=== PATIENT | male | born 1940 | race Caucasian/White ===

== ENCOUNTER → 2017-01-28 | Outpatient (CLI) | payer MEDICARE ==
[2016-02-14 11:19] VITALS: BP 130/77
[~2017-01-28] MED LIST: ACET325T16 PO; ASCO500T2 PO; ASPI325T11 PO; CLOP75TA PO; EZET10TA3 PO; FAMO20TA5 PO; GADOBUTROL 7.5 MMOL/7.5 ML VIAL IV ONE; MULT1TAB90 PO; PHEN100C PO; SIMV40TA3 PO; TAMS0.4C97 PO; VITA1TAB3 PO
--- NOTE | 2017-01-28 15:04 | RAD ---
MR BRAIN WITH CONTRAST HISTORY: PRIOR STUDY 09-22-10 AND 03-07-08 SENT...GAVE 7ML GADAVIST...PT C/O SLURRED SPEECH AND UNSTEADY GAIT...PRIOR STROKE COMPARISON: None TECHNIQUE: Axial diffusion-weighted imaging was obtained. Additional axial FLAIR, and axial T2 weighted images were obtained. Sagittal and axial T1-weighted imaging was obtained prior to the administration of intravenous contrast material. Additional sagittal, axial, and coronal T1-weighted imaging was obtained after the administration of gadolinium based intravenous contrast material. FINDINGS: There is encephalomalacia noted in the posterior left frontal lobe compatible with acute infarct. There is also cephalization the left cerebellar hemisphere from an old infarct. There are scattered foci of T2/FLAIR signal hyperintensity throughout the periventricular and deep hemispheric white matter bilaterally. This is nonspecific but most likely related to chronic small vessel ischemic disease. No abnormal enhancement identified. No restricted diffusion to indicate an acute infarct. No evidence of acute intracranial hemorrhage. No extra-axial fluid collections are identified. There is no mass effect or midline shift. Ventricular size is appropriate. Basal cisterns are patent. Visualized flow voids are normal in course, caliber, and signal. The globes are unremarkable apart from a thin right lens. There is mild mucosal thickening of the ethmoid air cells. IMPRESSION: No acute or recent infarct. No acute intracranial abnormality. Old infarcts are noted in the left posterior frontal lobe and left cerebellar hemisphere. Electronically signed by: Ross Klein MD (01/28/2017 3:00 PM)
== END | disposition home or self-care (01) ==
LOC: MRI 13:40
PROVIDERS: ATTEND Psychiatry & Neurology Neurology
DX: R26.9 Unspecified abnormalities of gait and mobility (principal)
CPT/HCPCS: 70553; A9585

== ENCOUNTER → 2017-11-29 | Outpatient (CLI) | payer MEDICARE ==
[2017-11-29] MEDS: GADOBUTROL 7.5 MMOL/7.5 ML VIAL IV (11:05)
== END | disposition home or self-care (01) ==
LOC: MRI 10:00
DX: M48.02 Spinal stenosis, cervical region (principal); M54.2 Cervicalgia; R26.81 Unsteadiness on feet; R56.9 Unspecified convulsions; G89.29 Other chronic pain
CPT/HCPCS: 72156; 95816; A9585

== ENCOUNTER → 2018-03-28 | Outpatient (CLI) | payer MEDICARE | END | disposition home or self-care (01) | LOC: RT 12:50 | DX: R56.9 Unspecified convulsions (principal); I10 Essential (primary) hypertension; E78.5 Hyperlipidemia, unspecified | CPT/HCPCS: 95816 ==

== ENCOUNTER 2018-04-30 21:54 | Inpatient (IN) | payer MEDICARE ==
[~2018-04-30] VITALS: Ht 172.7 cm; Wt 50.6 kg
[~2018-04-30 21:54] MED LIST changes: +EZET10TA18 PO; -EZET10TA3 PO; -GADOBUTROL 7.5 MMOL/7.5 ML VIAL IV ONE
[2018-04-30 22:00] VITALS: BP 161/101
[2018-04-30] MEDS ORDERED: HEPARIN 25,000UTS/500ML PREMIX 500 ML IV PRN (22:30)
[2018-04-30] MEDS ORDERED: HEPARIN for IV BOLUS 10,000 UNIT/10 ML VIAL. IV PRN (22:30)
[2018-04-30] MEDS ORDERED: ACETAMINOPHEN 325 MG TABLET. PO PRN (22:30)
[2018-04-30 23:06] LABS: BASO # 0.1 x10^3/uL (0.0-0.2); BASO % 1 % (0-3); EOS # 0.1 x10^3/uL (0.0-0.7); EOS % 1 % (0-3); HEMOGLOBIN 12.9 g/dL (13.0-17.5); LYMPH # 1.9 x10^3/uL (1.0-4.8); LYMPH % 30 % (24-48); MEAN CORPUSCULAR HEMOGLOBIN 34 pg (25-35); MEAN CORPUSCULAR HGB CONC 34 g/dL (31-37); MEAN CORPUSCULAR VOLUME 101 fL (79-100); MONO # 0.8 x10^3/uL (0.0-1.1); MONO % 12 % (0-9); NEUT # 3.4 x10^3uL (1.8-7.7); NEUT % 55 % (31-73); PLATELET COUNT 304 x10^3/uL (140-400); RED BLOOD COUNT 3.76 x10^6/uL (4.30-5.70); RED CELL DISTRIBUTION WIDTH 14.6 % (11.5-14.5); WHITE BLOOD COUNT 6.2 x10^3/uL (4.0-11.0)
[2018-04-30 23:10] LABS: CALCIUM 8.4 mg/dL (8.5-10.1); CREATININE 1.1 mg/dL (0.7-1.3); GFR 64.6; POTASSIUM 3.7 mmol/L (3.5-5.1)
[2018-04-30] MEDS ORDERED: PHEN100C PO (23:32)
[2018-04-30] MEDS ORDERED: CHOL10003 PO (23:34)
[2018-04-30] MEDS ORDERED: FA/V1CAP2 PO (23:37)
[2018-04-30] MEDS ORDERED: FERR325T14 PO (23:37)
[2018-05-01 03:10] VITALS: BP 113/76
--- NOTE | 2018-05-01 06:58 | EKG ---
[facility] [address] [place] [address] Test Date: 2018-04-30 Test Time: 22:30:08 Pat Name: NISHANT MARTIN Department: Room: 200 1 Gender: M Car Salter: : 1940 Requested By: MANASA MENESES Order Number: [id number] Reading MD: Kt Salas MD Measurements Intervals [place] Rate: 69 P: 52 TN: 176 QRS: -14 QRSD: 170 T: 155 QT: 478 QTc: 514 Interpretive Statements SINUS RHYTHM LEFTWARD AXIS NON SPECIFIC INTRAVENTRICULAR BLOCK ABNORMAL ECG Electronically Signed On 05-01-2018 7:37:22 CDT by Kt Salas MD
[2018-05-01 07:00] VITALS: BP 166/61
[2018-05-01] MEDS ORDERED: MORPHINE SULFATE 2 MG/ML VIAL. IV PRN (09:00)
[2018-05-01] MEDS ORDERED: traMADol 50 MG TABLET PO PRN (09:00)
[2018-05-01] MEDS ORDERED: ACETAMINOPHEN 325 MG TABLET. PO PRN ×2 (09:00)
[2018-05-01] MEDS ORDERED: ONDANSETRON PF 4 MG/2 ML VIAL. IV PRN (09:00)
[2018-05-01] MEDS ORDERED: DOCUSATE SODIUM 100 MG CAPSULE. PO PRN (09:00)
--- NOTE | 2018-05-01 09:23 | PDOC2 ---
RALPH JONES DREDGE DECKHAND 05/01/18 0923: CARDIAC CONSULT DATE OF CONSULT Date of Consult DATE: 05/01/18 TIME: 08:48 REASON FOR CONSULT Reason for Consult: abnormal rhythm REFERRING PHYSICIAN Referring Physician: Maricarmen SOURCE Source: Chart review, Patient HISTORY OF PRESENT ILLNESS HISTORY OF PRESENT ILLNESS This is a pleasant 77 yo male admitted for complains of increasing weakness and difficulty swallowing. Pt is not a reliable historian. He currently is aware that he is in the hospital otherwise he is pleasantly confuse with aphasia. Family is not at the bedside for further information. He was initially at [facility] and per chart review. He has been noted with changes in his mentation. He is known for left sided CVA. and the change is he could not walk like he did before with what appears to be ataxia. He does have aphasia and per review his dysarthria and when I talked to him he tries to find the words and utters an unrelated response to the question. He was also having PHILLIP yesterday. There was no complains of any cardiac symptoms, no CP, SOA, palpitations. Presently he denies any discomfort and appears comfortable. Upon admission at [facility] he has been noted with abnormal EKG prompting this consult. He also has hx of CAD with ALFREDO placed in the RCA on 02/2016. He eventually was transferred to [facility] for further evaluation. PAST MEDICAL HISTORY Cardiovascular: CAD, HTN, Hyperlipidemia, Aortic stenosis (mod to severe), Other Pulmonary: COPD CENTRAL NERVOUS SYSTEM: CVA, Seizure Heme/Onc: Anemia NOS, Cancer (bladder) Psych: No pertinent hx Musculoskeletal: Osteoarthritis Rheumatologic: No pertinent hx, Other (rheumatic fever) Infectious disease: No pertinent hx ENT: Other (macular degeneration; [place]) Renal/: Benign prostatic enlarg. Endocrine: No pertinent hx Dermatology: No pertinent hx PAST SURGICAL HISTORY Past Surgical History: Appendectomy, Hernia Repair (x2), Other (cystoscopy, bladder CA resection) FAMILY HISTORY Family History: Family History Unknown SOCIAL HISTORY Smoke: No ALCOHOL: none Drugs: None Lives: with Family ALLERGIES ALLERGIES: Coded Allergies: No Known Drug Allergies (Unverified , 02/12/16) ROS Review of System unreliable, aphasia, and poor historian PHYSICAL EXAM General: Alert, Oriented X3, Cooperative, No acute distress HEENT: Atraumatic, Mucous membr. moist/pink Lungs: Clear to auscultation, Normal air movement Heart: Regular rate (SR), Other (distant heart sounds, systolic murmur) Abdomen: Soft, No tenderness Extremities: No cyanosis, No edema Skin: No breakdown, No significant lesion Neuro: Strength at 5/5 X4 ext, Sensation intact Psych/Mental Status: Mood NL, Other (aphasia, dysarthria) MUSCULOSKELETAL: Osteoarthritic changes both hands VITALS VITALS Vital Signs Date Time Temp Pulse Resp B/P (MAP) Pulse Ox O2 Delivery O2 Flow Rate FiO2 05/01/18 07:00 98.2 66 16 166/61 (96) 96 Room Air 98.2 LABS Lab: Laboratory Tests Test 04/30/18 22:55 White Blood Count 6.2 x10^3/uL (4.0-11.0) Red Blood Count 3.76 x10^6/uL (4.30-5.70) Hemoglobin 12.9 g/dL (13.0-17.5) Hematocrit 38.0 % (39.0-53.0) Mean Corpuscular Volume 101 fL (79-100) Mean Corpuscular Hemoglobin 34 pg (25-35) Mean Corpuscular Hemoglobin Concent 34 g/dL (31-37) Red Cell Distribution Width 14.6 % (11.5-14.5) Platelet Count 304 x10^3/uL (140-400) Neutrophils (%) (Auto) 55 % (31-73) Lymphocytes (%) (Auto) 30 % (24-48) Monocytes (%) (Auto) 12 % (0-9) Eosinophils (%) (Auto) 1 % (0-3) Basophils (%) (Auto) 1 % (0-3) Neutrophils # (Auto) 3.4 x10^3uL (1.8-7.7) Lymphocytes # (Auto) 1.9 x10^3/uL (1.0-4.8) Monocytes # (Auto) 0.8 x10^3/uL (0.0-1.1) Eosinophils # (Auto) 0.1 x10^3/uL (0.0-0.7) Basophils # (Auto) 0.1 x10^3/uL (0.0-0.2) Sodium Level 144 mmol/L (136-145) Potassium Level 3.7 mmol/L (3.5-5.1) Chloride Level 107 mmol/L (98-107) Carbon Dioxide Level 31 mmol/L (21-32) Anion Gap 6 (6-14) Blood Urea Nitrogen 23 mg/dL (8-26) Creatinine 1.1 mg/dL (0.7-1.3) Estimated GFR (Cockcroft-Gault) 64.6 Glucose Level 102 mg/dL (70-99) Calcium Level 8.4 mg/dL (8.5-10.1) Magnesium Level 2.0 mg/dL (1.8-2.4) Troponin I Quantitative < 0.017 ng/mL (0.000-0.055) ECHOCARDIOGRAM ECHOCARDIOGRAM <Conclusion> Moderate LV dysfunction. EF 40%. Septal motion suggestive of conduction abnormality, otherwise global hypokinesis. There is moderate to severe valvular aortic stenosis. YOLY by continuity equation is 0.9 cm2. MG of 30 mm Hg. Dimensionless index of 0.27. DATE: 08/28/17 1810 ASSESSMENT/PLAN ASSESSMENT/PLAN 1. 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 neurology consulted. 2. Abnormal EKG: EKG noted with LBBB and T wave changes. Changes could be related to neurological issue and current . Troponin series are nml so far and continues to have negative cardiac symptoms. 3. CAD: 02/2016 PCI/ALFREDO to RCA otherwise no significant lesions to other major vessels. He sees Dr. Leach 4. Moderate to severe : unclear future plans in regards to this last checked 08/2017 5. HTN: controlled so far. No noted BP regimen. 6. HLP 7. Mild macrocytic anemia Recommendations 1. Will need MRI, Neurology consult 2. TTE today. will consider for ischemic workup pending neurology evaluation. 3. TSH, lipids, CKs 4. Unclear as far if any referral made for his , will clarify with family when available. 5. ASA, statin. Labetolol FRANCE MORA MD 05/01/18 1509: CARDIAC CONSULT ASSESSMENT/PLAN ASSESSMENT/PLAN Pt. seen and examined. Agree with above ASSOCIATE BUYER note. EKG changes likely related to . Plan for further eval of with echo and then pending studies and neuro eval, consider cath for further assessment/treatment. RALPH JONES APRN May 01, 2018 09:23 FRANCE BECK MD May 01, 2018 15:09
[2018-05-01] MEDS ORDERED: LABETALOL 20 MG/4 ML DISP.SYRIN. IVP PRN (09:30)
[2018-05-01] MEDS ORDERED: ASPIRIN ENTERIC COATED 325 MG TABLET.DR. PO SCH (10:00)
[2018-05-01 10:25] LABS: CREATINE KINASE 70 U/L (39-308)
[2018-05-01] MEDS: MULTIVITAMIN with MINERAL TABLET. PO SCH (10:38)
[2018-05-01] MEDS: FAMOTIDINE 20 MG TABLET. PO SCH ×2 (10:38→21:15)
[2018-05-01] MEDS: MULTIVITAMIN I-VITE TABLET. PO SCH (10:38)
[2018-05-01] MEDS: CHOLECALCIFEROL (VITAMIN D3) 1,000 UNIT TABLET PO SCH (10:38)
[2018-05-01] MEDS: CLOPIDOGREL BISULFATE 75 MG TABLET PO SCH (10:39)
[2018-05-01] MEDS: FERROUS SULFATE 325 MG TABLET. PO SCH (10:39)
[2018-05-01 10:54] VITALS: BP 160/71
--- NOTE | 2018-05-01 12:38 | PDOC1 ---
History and Physical Date of Admission Date of Admission 05/01/18 Identification/Chief Complaint Chief Complaint weakness Source Source: Chart review, Patient History of Present Illness History of Present Illness 77yo M, with h/o stroke with left frontal stroke last year, was sent from [facility] for weakness and EKG change. PT IS pleasant demented, not sure this is his baseline post his old stroke or new symptoms. He has expressive aphasia, still follows commands ok. But cannot tell me why he is in hosp, which hosp. Denies chest pain. as per [place], and ERP, pt was sent for weakness, not sure which side, or worsening aphagia or dysarthria. EKG in [facility] showed some st depression, LBBB, as per card it is old, i dont have records to compare. Past Medical History Cardiovascular: CAD, HTN, Hyperlipidemia, Aortic stenosis (mod to severe), Other Pulmonary: COPD CENTRAL NERVOUS SYSTEM: CVA, Seizure Heme/Onc: Anemia NOS, Cancer (bladder) Psych: No pertinent hx Rheumatologic: No pertinent hx, Other (rheumatic fever) Infectious disease: No pertinent hx ENT: Other (macular degeneration; [place]) Renal/: Benign prostatic enlarg. Endocrine: No pertinent hx Dermatology: No pertinent hx Past Surgical History Past Surgical History: Appendectomy, Hernia Repair (x2), Other (cystoscopy, bladder CA resection) Family History Family History: Family History Unknown Social History Smoke: No ALCOHOL: none Drugs: None Current Medications Current Medications Current Medications Medications (Trade) Dose Ordered Sig/Arianna Start Time Stop Time Status Last Admin Dose Admin Acetaminophen (Tylenol) 650 mg PRN Q6HRS PRN 05/01/18 09:00 UNV Aspirin (Ecotrin) 325 mg [id number] 05/01/18 10:00 05/01/18 10:39 325 MG Clopidogrel Bisulfate (Plavix) 75 mg [id number] 05/01/18 10:00 05/01/18 10:39 75 MG Docusate Sodium (Colace) 100 mg PRN DAILY PRN 05/01/18 09:00 Enoxaparin Sodium (Lovenox 40mg Syringe) 40 mg Q24H 05/01/18 16:00 Famotidine (Pepcid) 20 mg BID 05/01/18 10:00 05/01/18 10:38 20 MG Ferrous Sulfate (Feosol) 325 mg DAILY 05/01/18 10:00 05/01/18 10:39 325 MG Heparin Sodium (Porcine) (Heparin Sodium) 1,350 unit PRN Q6HRS PRN 04/30/18 22:30 04/30/18 23:51 DC Heparin Sodium/ Dextrose 500 ml @ 0 mls/hr CONT PRN 04/30/18 22:30 04/30/18 23:51 DC Labetalol HCl (Normodyne Iv Push) 10 mg PRN Q10MIN PRN 05/01/18 09:30 Morphine Sulfate (Morphine Sulfate) 2 mg PRN Q2HR PRN 05/01/18 09:00 Multivitamins (Thera M Plus) 1 tab DAILY 05/01/18 10:00 05/01/18 10:38 1 TAB Multivitamins/ Minerals (I-Titus) 1 tab DAILY 05/01/18 10:00 05/01/18 10:38 1 TAB Ondansetron HCl (Zofran) 4 mg PRN Q6HRS PRN 05/01/18 09:00 Phenytoin Sodium (Dilantin) 400 mg QHS 05/01/18 21:00 Simvastatin (Zocor) 40 mg QHS 05/01/18 21:00 Tamsulosin HCl (Flomax) 0.4 mg QHS 05/01/18 21:00 Tramadol HCl (Ultram) 50 mg PRN Q6HRS PRN 05/01/18 09:00 Vitamin D (Vitamin D3) 1,000 unit DAILY 05/01/18 10:00 05/01/18 10:38 1,000 UNIT Allergies Allergies Allergies Coded Allergies Type Severity Reaction Last Updated Verified No Known Drug Allergies 02/12/16 No ROS Review of System CONSTITUTIONAL: No fever or chills EYES: No recent changes SKIN: No rash or itching CARDIOVASCULAR: No chest pain, syncope, palpitations, or edema RESPIRATORY: No SOB or cough GASTROINTESTINAL: No nausea, vomiting or abdominal pain NEUROLOGICAL: No headaches or weakness ENDOCRINE: No cold or heat intolerance GENITOURINARY: No urgency or frequency of urination MUSCULOSKELETAL: No back pain or joint pain LYMPHATICS: No enlarged lymph nodes PSYCHIATRIC: No anxiety or depression Physical Exam Physical Exam GEN.: No apparent distress. aaox0, expressive aphasia. HEENT: Head is normocephalic, atraumatic NECK: Supple. LUNGS: Clear to auscultation. HEART: RRR, S1, S2 present. Peripheral pulses intact ABDOMEN: Soft, nontender. Positive bowel sounds. EXTREMITIES: Without any cyanosis. left hand is contracted. NEUROLOGIC: Normal speech, normal tone PSYCHIATRIC: Normal affect, normal mood. SKIN: No ulcerations Vitals Vitals Vital Signs Date Time Temp Pulse Resp B/P (MAP) Pulse Ox O2 Delivery O2 Flow Rate FiO2 05/01/18 10:54 98.3 84 18 160/71 (100) 97 Room Air 98.3 Labs Labs Laboratory Tests Test 04/30/18 22:55 05/01/18 09:30 White Blood Count 6.2 x10^3/uL (4.0-11.0) Red Blood Count 3.76 x10^6/uL (4.30-5.70) Hemoglobin 12.9 g/dL (13.0-17.5) Hematocrit 38.0 % (39.0-53.0) Mean Corpuscular Volume 101 fL (79-100) Mean Corpuscular Hemoglobin 34 pg (25-35) Mean Corpuscular Hemoglobin Concent 34 g/dL (31-37) Red Cell Distribution Width 14.6 % (11.5-14.5) Platelet Count 304 x10^3/uL (140-400) Neutrophils (%) (Auto) 55 % (31-73) Lymphocytes (%) (Auto) 30 % (24-48) Monocytes (%) (Auto) 12 % (0-9) Eosinophils (%) (Auto) 1 % (0-3) Basophils (%) (Auto) 1 % (0-3) Neutrophils # (Auto) 3.4 x10^3uL (1.8-7.7) Lymphocytes # (Auto) 1.9 x10^3/uL (1.0-4.8) Monocytes # (Auto) 0.8 x10^3/uL (0.0-1.1) Eosinophils # (Auto) 0.1 x10^3/uL (0.0-0.7) Basophils # (Auto) 0.1 x10^3/uL (0.0-0.2) Sodium Level 144 mmol/L (136-145) Potassium Level 3.7 mmol/L (3.5-5.1) Chloride Level 107 mmol/L (98-107) Carbon Dioxide Level 31 mmol/L (21-32) Anion Gap 6 (6-14) Blood Urea Nitrogen 23 mg/dL (8-26) Creatinine 1.1 mg/dL (0.7-1.3) Estimated GFR (Cockcroft-Gault) 64.6 Glucose Level 102 mg/dL (70-99) Calcium Level 8.4 mg/dL (8.5-10.1) Magnesium Level 2.0 mg/dL (1.8-2.4) Troponin I Quantitative < 0.017 ng/mL (0.000-0.055) < 0.017 ng/mL (0.000-0.055) Creatine Kinase 70 U/L (39-308) Creatine Kinase MB (Mass) 1.1 ng/mL (0.0-3.6) Creatine Kinase MB Relative Index % (0-4) Vitamin B12 Level 476 pg/mL (247-911) 25-Hydroxy Vitamin D Total 53.4 ng/mL (30-100) Thyroid Stimulating Hormone (TSH) 5.256 uIU/mL (0.358-3.74) Laboratory Tests Test 04/30/18 22:55 05/01/18 09:30 White Blood Count 6.2 x10^3/uL (4.0-11.0) Red Blood Count 3.76 x10^6/uL (4.30-5.70) Hemoglobin 12.9 g/dL (13.0-17.5) Hematocrit 38.0 % (39.0-53.0) Mean Corpuscular Volume 101 fL (79-100) Mean Corpuscular Hemoglobin 34 pg (25-35) Mean Corpuscular Hemoglobin Concent 34 g/dL (31-37) Red Cell Distribution Width 14.6 % (11.5-14.5) Platelet Count 304 x10^3/uL (140-400) Neutrophils (%) (Auto) 55 % (31-73) Lymphocytes (%) (Auto) 30 % (24-48) Monocytes (%) (Auto) 12 % (0-9) Eosinophils (%) (Auto) 1 % (0-3) Basophils (%) (Auto) 1 % (0-3) Neutrophils # (Auto) 3.4 x10^3uL (1.8-7.7) Lymphocytes # (Auto) 1.9 x10^3/uL (1.0-4.8) Monocytes # (Auto) 0.8 x10^3/uL (0.0-1.1) Eosinophils # (Auto) 0.1 x10^3/uL (0.0-0.7) Basophils # (Auto) 0.1 x10^3/uL (0.0-0.2) Sodium Level 144 mmol/L (136-145) Potassium Level 3.7 mmol/L (3.5-5.1) Chloride Level 107 mmol/L (98-107) Carbon Dioxide Level 31 mmol/L (21-32) Anion Gap 6 (6-14) Blood Urea Nitrogen 23 mg/dL (8-26) Creatinine 1.1 mg/dL (0.7-1.3) Estimated GFR (Cockcroft-Gault) 64.6 Glucose Level 102 mg/dL (70-99) Calcium Level 8.4 mg/dL (8.5-10.1) Magnesium Level 2.0 mg/dL (1.8-2.4) Troponin I Quantitative < 0.017 ng/mL (0.000-0.055) < 0.017 ng/mL (0.000-0.055) Creatine Kinase 70 U/L (39-308) Creatine Kinase MB (Mass) 1.1 ng/mL (0.0-3.6) Creatine Kinase MB Relative Index % (0-4) Vitamin B12 Level 476 pg/mL (247-911) 25-Hydroxy Vitamin D Total 53.4 ng/mL (30-100) Thyroid Stimulating Hormone (TSH) 5.256 uIU/mL (0.358-3.74) VTE Prophylaxis Ordered VTE Prophylaxis Devices: Yes VTE Pharmacological Prophylaxi: Yes Assessment/Plan Assessment/Plan generalized weakness possible new CVA symptoms h/o left frontal stroke, has left hand contracted tho abnormal EKG, LBBB, ST depression, t wave changes 2/2 neuro? or old? h/o CAD with RCA 1 stent moderate to severe HTN HLD VASCULAR dementia, aphasia anemia plan: need to talk to family to see baseline neuro, card consult mri brain check echo, TSH, t3, t4, cont home meds PTOT dvt ppx PHUONG HENDERSON MD May 01, 2018 12:38
--- NOTE | 2018-05-01 12:50 | RAD ---
MRI Brain without contrast History: Confusion, weakness, previous stroke Technique: Multiplanar, multisequential noncontrast MR imaging was performed of the brain. Contrast: None Comparison: January 28, 2017 Findings: There is motion degradation. There is no restricted diffusion suggestive of a recent infarct. There is again large area of encephalomalacia centered in the left frontal lobe compatible with previous infarct with cortical involvement, associated prominent T2 and FLAIR hyperintense signal likely due to gliosis overall similar in extent. There is also some involvement of the left basal ganglia and left parietal lobe. There is also fairly large old infarct of the left cerebellum as seen previously. There are also small old lacunar infarcts of the bilateral thalami as seen previously. There is other mild T2 and FLAIR hyperintense signal of the right periventricular white matter with some extent to the deep white matter greatest of the frontoparietal lobes overall similar. Ventricular size is unchanged, within normal limits. There is mild generalized supratentorial involutional change. There is no new intra-axial mass effect or midline shift. There is preservation of the major arterial intracranial flow voids at the skull base. There has been lens surgery on the right. There is patchy mild to moderate posterior ethmoid air cell mucosal thickening, minimal right sphenoid sinus mucosal thickening. Cerebellar tonsils are normal in location. There is preserved marrow signal of the clivus. There is no significant abnormality of pineal gland or pituitary gland. There is cervical degenerative disc disease. There is nonspecific edema of the dens. Impression: 1. There is no evidence of recent infarct. There are old infarcts of the left cerebellum and left frontal parietal lobes extending to basal ganglia, also old bilateral thalamic lacunar infarcts. Other scattered T2 and FLAIR hyperintense signal abnormality is probably due to chronic microvascular ischemic disease. 2. There is nonspecific edema of the dens. Electronically signed by: Chun Harry MD (05/01/2018 12:47 PM) [id number]
[2018-05-01 13:28] LABS: FREE T4 0.75 ng/dL (0.76-1.46)
--- NOTE | 2018-05-01 13:46 | RAD ---
RIBS BILAT PA CXR 4+V History: difficult swallow, traumatic injury to cervical spine previously, bladder cancer, weakness Comparison: August 06, 2012 Findings: PA lateral views of the chest and 2 additional views of the bilateral ribs for a total of 6 views are submitted. Heart size is considered within normal limits. There is moderate size hiatal hernia is somewhat greater than previously. There is emphysema. There is no dependent pleural fluid or pneumothorax. There is no lobar infiltrate. No pneumothorax is identified. There is likely old right posterolateral seventh rib fracture. There is slightly displaced left ninth rib fracture, likely subacute, also left posterolateral 10th rib fracture likely at least subacute in chronicity. Impression: 1. There are likely at least subacute left ninth and 10th rib fractures and old right seventh rib fracture. 2. There is hiatal hernia. Electronically signed by: Chun Harry MD (05/01/2018 1:43 PM) [facility] [id number]
[2018-05-01 14:42] VITALS: BP 125/65
[2018-05-01 14:48] LABS: CHOLESTEROL/HDL RATIO 2.1
--- NOTE | 2018-05-01 17:00 | PDOC2 ---
NEUROLOGY CONSULT Date of Admission Date of Admission DATE: 05/01/18 TIME: 16:24 Reason for Consult Reason for Consult: IMPRESSION: Difficult swallowing. Weakness. Aphasia. Confusion. Metabolic encephalopathy. Subacute left 9th and 10th rib fractures. Old right 7th fracture. Seizure, hx. Bladder cancer. Falls. CAD, s/p stents. HTN. COPD. Degenerative spine disease. C-spine stenosis., C5-C6 myelomalacia. Old left frontal and parietal, bilateral BG and thalami infracts. Left hemiplegia. No evidence of acute CVA this time. RECOMMENDATIONS/PLAN: Continue Plavix 75 mg daily. continue ASA 81 mg daily. Continue Zocor 40 mg HS. Swallow evaluation. Lab: see orders. OT/PT. Discussed with his son at bedside on 05/01/18. HISTORY OF THE PRESENT ILLNESS: 77-y-old male patient with above diseases was noted MS changes, confusion, generalized weakness with worsening of weakness in left side, and he was unable to walk as he could using a walker. He was said also had difficult swallowing. He was brought to the ER of [facility] due to concerns of new stroke, so Neurology was requested for consultation. Past Medical History Cardiovascular: CAD, HTN, Hyperlipidemia, Aortic stenosis (mod to severe). Pulmonary: COPD CENTRAL NERVOUS SYSTEM: CVA, Seizure Heme/Onc: Anemia NOS, Cancer (bladder) Psych: No pertinent hx Rheumatologic: No pertinent hx, Other (rheumatic fever) Infectious disease: No pertinent hx ENT: Other (macular degeneration; [place]) Renal/: Benign prostatic enlarg. Endocrine: No pertinent hx Dermatology: No pertinent hx Past Surgical History Appendectomy, Hernia Repair (x2), Other (cystoscopy, bladder CA resection) Family History Non contributory. ALLERGY: Reviewed. MEDICATIONS: Refer to [facility] SOCIAL HISTORY: Lives at home. Denies current smoking, drinking, and illicit drug use. He smoked in the past but quit about 20 years ago. REVIEW OF SYSTEMS: Constitutional: Mild weight loss. Head: No recent traumatic brain or head injury. Skin: No edema, or rash. Ear: No infection. Eyes: No vision loss or color blindness. Nose: No bleeding or purulent discharges. Hearing: Hearing decrease. Neck: No injury. Cardiac: CAD, s/p stents, HTN, HLD. Pulmonary: COPD. GI: No GI ulcer, GI bleeding. Urinary/genital: UTI. Endocrinologic: No cousin face, craniofacial dysmorphism, polydactyly. Skeletomuscular: left side hemiplegia. Generalized weakness. Neurological: see HP. Psychiatric: Denies drug use/abuse. Otherwise, not [id number] review of systems. PHYSICAL EXAMINATION: General appearance is in sub acute distress. HEENT: Normocephalic and nontraumatic. Eyes, nose, ears, and throat are unremarkable. Neck is supple. No lymphadenopathy. No crepitus. Cardiovascular: S1, S2, regular rate and rhythm. Pulmonary: Clear to auscultation bilaterally. Abdomen: Bowel sounds are positive. Extremities: No rash, lesions, or edema. No restriction of range of motion NEUROLOGICAL EXAMINATION: Awake. Not oriented to time, place but knew person. PERRL. EOMI. CN: no acute focal findings. Muscle tone: within normal. Muscle strength: Left side hemiplegia. 4+ right side. DTR: 2 Plantar reflex: Neutral response bilaterally Gait: not examined in bed. Sensory exam: no abnormal findings. Cerebellar signs elicited. F-T-N test not accurate. Current Medications Current Medications Current Medications Acetaminophen (Tylenol) 650 mg PRN Q4HRS PRN PO TEMP OVER 100.4F OR MILD PAIN; Start 04/30/18 at 22:30 Heparin Sodium/ Dextrose 500 ml @ 0 mls/hr CONT PRN IV SEE I/O RECORD; Start at 22:30; Stop 04/30/18 at 23:51; Status DC Heparin Sodium (Porcine) (Heparin Sodium) 1,350 unit PRN Q6HRS PRN IV FOR UFH LEVEL LESS THAN 0.2; Start 04/30/18 at 22:30; Stop 04/30/18 at 23:51; Status DC Acetaminophen (Tylenol) 650 mg PRN Q6HRS PRN PO FEVER; Start 05/01/18 at 09:00 ; Status UNV Ondansetron HCl (Zofran) 4 mg PRN Q6HRS PRN IV NAUSEA/VOMITING; Start 05/01/18 at 09:00 Morphine Sulfate (Morphine Sulfate) 2 mg PRN Q2HR PRN IV MODERATE TO SEVERE PAIN; Start 05/01/18 at 09:00 Tramadol HCl (Ultram) 50 mg PRN Q6HRS PRN PO MODERATE-SEVERE PAIN; Start at 09:00 Docusate Sodium (Colace) 100 mg PRN DAILY PRN PO CONSTIPATION; Start 05/01/18 at 09:00 Acetaminophen (Tylenol) 650 mg PRN Q6HRS PRN PO MILD PAIN / TEMP; Start at 09:00; Status UNV Aspirin (Ecotrin) 325 mg DAILYWBKFT PO Last administered on 05/01/18at 10:39; Start 05/01/18 at 10:00 Vitamin D (Vitamin D3) 1,000 unit DAILY PO Last administered on 05/01/18at 10:38 ; Start 05/01/18 at 10:00 Clopidogrel Bisulfate (Plavix) 75 mg DAILYWBKFT PO Last administered on at 10:39; Start 05/01/18 at 10:00 Famotidine (Pepcid) 20 mg BID PO Last administered on 05/01/18at 10:38; Start at 10:00 Ferrous Sulfate (Feosol) 325 mg DAILY PO Last administered on 05/01/18at 10:39; Start 05/01/18 at 10:00 Multivitamins (Thera M Plus) 1 tab DAILY PO Last administered on 05/01/18at 10: 38; Start 05/01/18 at 10:00 Tamsulosin HCl (Flomax) 0.4 mg QHS PO ; Start 05/01/18 at 21:00 Multivitamins/ Minerals (I-Titus) 1 tab DAILY PO Last administered on 05/01/18at 10:38; Start 05/01/18 at 10:00 Phenytoin Sodium (Dilantin) 400 mg QHS PO ; Start 05/01/18 at 21:00 Simvastatin (Zocor) 40 mg QHS PO ; Start 05/01/18 at 21:00 Labetalol HCl (Normodyne Iv Push) 10 mg PRN Q10MIN PRN IVP HYPERTENSION, SEE COMMENTS; Start 05/01/18 at 09:30 Enoxaparin Sodium (Lovenox 40mg Syringe) 40 mg Q24H SQ ; Start 05/01/18 at 16:00 Active Scripts Active Vitamin B Complex 1 Each Tablet 1 Tab PO DAILY 30 Days Flomax (Tamsulosin Hcl) 0.4 Mg Cap.er.24h 0.4 Mg PO QHS 30 Days Simvastatin 40 Mg Tablet 40 Mg PO QHS 30 Days Thera-M Tablet (Multivits,Ca,Minerals/Iron/Fa) 1 Each Tablet 1 Tab PO DAILY 30 Days Famotidine 20 Mg Tablet 20 Mg PO BID 30 Days Clopidogrel (Clopidogrel Bisulfate) 75 Mg Tablet 75 Mg PO DAILYWBKFT 30 Days Aspirin Ec (Aspirin) 325 Mg Tablet.dr 325 Mg PO DAILYWBKFT 30 Days Mapap (Acetaminophen) 325 Mg Tablet 650 Mg PO PRN Q6HRS PRN 30 Days Reported Ferrous Sulfate 325 Mg Tablet 1 Tab PO DAILY Ocuvel Capsule (FA/Vit C/E/Zinc/Copper/Lut/Roselyn) 1 Each Capsule 1 Each PO BID Vitamin D3 (Cholecalciferol (Vitamin D3)) 1,000 Unit Tablet 1 Tab PO DAILY Dilantin (Phenytoin Sodium Extended) 100 Mg Capsule 400 Mg PO HS Allergies Allergies: Allergies Coded Allergies Type Severity Reaction Last Updated Verified No Known Drug Allergies 02/12/16 No ROS Review of System The patient denies any associated fevers, chills, headache, ear pain, rhinorrhea , sore throat, stiff neck, productive cough, chest pain, shortness of breath, back or flank pain, abdominal pain, nausea, vomiting, diarrhea, constipation, dysuria, rash, numbness, weakness, tingling, incontinence, difficulty ambulating, or diaphoresis. Physical Exam Physical Exam General: Well developed, well nourished, no acute distress, well appearing HEENT: Pupils equally round and reactive to light, EOMI, no discharge, normal conjunctiva Neck: Supple, no nuchal rigidity, no JVD, trachea midline, no tenderness Cardiac: RRR, no murmurs, no gallops, no rubs Chest/Lungs: CTAB, no wheeze, no rhonchi, no crackles Abdomen: soft, non-distended, no guarding, no peritoneal signs, non-tender Back: No tenderness Extremities: no edema, pulses intact, non-tender,capillary refill <3 sec bilateral upper and lower extremities, Neuro: Alert and oriented x 4, no focal deficits, normal speech Vitals Vitals: Vital Signs Date Time Temp Pulse Resp B/P (MAP) Pulse Ox O2 Delivery O2 Flow Rate FiO2 05/01/18 14:42 98.3 82 18 125/65 (85) 95 Room Air 98.3 Labs Labs Laboratory Tests Test 04/30/18 22:55 05/01/18 09:30 White Blood Count 6.2 x10^3/uL (4.0-11.0) Red Blood Count 3.76 x10^6/uL (4.30-5.70) Hemoglobin 12.9 g/dL (13.0-17.5) Hematocrit 38.0 % (39.0-53.0) Mean Corpuscular Volume 101 fL (79-100) Mean Corpuscular Hemoglobin 34 pg (25-35) Mean Corpuscular Hemoglobin Concent 34 g/dL (31-37) Red Cell Distribution Width 14.6 % (11.5-14.5) Platelet Count 304 x10^3/uL (140-400) Neutrophils (%) (Auto) 55 % (31-73) Lymphocytes (%) (Auto) 30 % (24-48) Monocytes (%) (Auto) 12 % (0-9) Eosinophils (%) (Auto) 1 % (0-3) Basophils (%) (Auto) 1 % (0-3) Neutrophils # (Auto) 3.4 x10^3uL (1.8-7.7) Lymphocytes # (Auto) 1.9 x10^3/uL (1.0-4.8) Monocytes # (Auto) 0.8 x10^3/uL (0.0-1.1) Eosinophils # (Auto) 0.1 x10^3/uL (0.0-0.7) Basophils # (Auto) 0.1 x10^3/uL (0.0-0.2) Sodium Level 144 mmol/L (136-145) Potassium Level 3.7 mmol/L (3.5-5.1) Chloride Level 107 mmol/L (98-107) Carbon Dioxide Level 31 mmol/L (21-32) Anion Gap 6 (6-14) Blood Urea Nitrogen 23 mg/dL (8-26) Creatinine 1.1 mg/dL (0.7-1.3) Estimated GFR (Cockcroft-Gault) 64.6 Glucose Level 102 mg/dL (70-99) Calcium Level 8.4 mg/dL (8.5-10.1) Magnesium Level 2.0 mg/dL (1.8-2.4) Troponin I Quantitative < 0.017 ng/mL (0.000-0.055) < 0.017 ng/mL (0.000-0.055) Creatine Kinase 70 U/L (39-308) Creatine Kinase MB (Mass) 1.1 ng/mL (0.0-3.6) Creatine Kinase MB Relative Index % (0-4) Triglycerides Level 31 mg/dL (0-150) Cholesterol Level 186 mg/dL (0-200) LDL Cholesterol, Calculated 90 mg/dL (0-100) VLDL Cholesterol, Calculated 6 mg/dL (0-40) Non-HDL Cholesterol Calculated 96 mg/dL (0-129) HDL Cholesterol 90 mg/dL (40-60) Cholesterol/HDL Ratio 2.1 Vitamin B12 Level 476 pg/mL (247-911) 25-Hydroxy Vitamin D Total 53.4 ng/mL (30-100) Thyroid Stimulating Hormone (TSH) 5.256 uIU/mL (0.358-3.74) Free Thyroxine 0.75 ng/dL (0.76-1.46) Free Triiodothyronine (T3) pg/mL 2.21 pg/mL (2.18-3.98) Laboratory Tests Test 04/30/18 22:55 05/01/18 09:30 White Blood Count 6.2 x10^3/uL (4.0-11.0) Red Blood Count 3.76 x10^6/uL (4.30-5.70) Hemoglobin 12.9 g/dL (13.0-17.5) Hematocrit 38.0 % (39.0-53.0) Mean Corpuscular Volume 101 fL (79-100) Mean Corpuscular Hemoglobin 34 pg (25-35) Mean Corpuscular Hemoglobin Concent 34 g/dL (31-37) Red Cell Distribution Width 14.6 % (11.5-14.5) Platelet Count 304 x10^3/uL (140-400) Neutrophils (%) (Auto) 55 % (31-73) Lymphocytes (%) (Auto) 30 % (24-48) Monocytes (%) (Auto) 12 % (0-9) Eosinophils (%) (Auto) 1 % (0-3) Basophils (%) (Auto) 1 % (0-3) Neutrophils # (Auto) 3.4 x10^3uL (1.8-7.7) Lymphocytes # (Auto) 1.9 x10^3/uL (1.0-4.8) Monocytes # (Auto) 0.8 x10^3/uL (0.0-1.1) Eosinophils # (Auto) 0.1 x10^3/uL (0.0-0.7) Basophils # (Auto) 0.1 x10^3/uL (0.0-0.2) Sodium Level 144 mmol/L (136-145) Potassium Level 3.7 mmol/L (3.5-5.1) Chloride Level 107 mmol/L (98-107) Carbon Dioxide Level 31 mmol/L (21-32) Anion Gap 6 (6-14) Blood Urea Nitrogen 23 mg/dL (8-26) Creatinine 1.1 mg/dL (0.7-1.3) Estimated GFR (Cockcroft-Gault) 64.6 Glucose Level 102 mg/dL (70-99) Calcium Level 8.4 mg/dL (8.5-10.1) Magnesium Level 2.0 mg/dL (1.8-2.4) Troponin I Quantitative < 0.017 ng/mL (0.000-0.055) < 0.017 ng/mL (0.000-0.055) Creatine Kinase 70 U/L (39-308) Creatine Kinase MB (Mass) 1.1 ng/mL (0.0-3.6) Creatine Kinase MB Relative Index % (0-4) Triglycerides Level 31 mg/dL (0-150) Cholesterol Level 186 mg/dL (0-200) LDL Cholesterol, Calculated 90 mg/dL (0-100) VLDL Cholesterol, Calculated 6 mg/dL (0-40) Non-HDL Cholesterol Calculated 96 mg/dL (0-129) HDL Cholesterol 90 mg/dL (40-60) Cholesterol/HDL Ratio 2.1 Vitamin B12 Level 476 pg/mL (247-911) 25-Hydroxy Vitamin D Total 53.4 ng/mL (30-100) Thyroid Stimulating Hormone (TSH) 5.256 uIU/mL (0.358-3.74) Free Thyroxine 0.75 ng/dL (0.76-1.46) Free Triiodothyronine (T3) pg/mL 2.21 pg/mL (2.18-3.98) AMANDA,FERILYN MD May 01, 2018 17:00
[2018-05-01 17:14] LABS: BILIRUBIN,URINE NEGATIVE (NEG); CLARITY,URINE CLEAR; COLOR,URINE YELLOW; NITRITE,URINE NEGATIVE (NEG); PROTEIN,URINE NEGATIVE (NEG-TRACE); UROBILINOGEN,URINE 0.2 mg/dL (0.2 mg/dL)
[2018-05-01 17:23] LABS: BACTERIA,URINE 0 /HPF (0-FEW); RBC,URINE OCC /HPF (0-2); SQUAMOUS EPITHELIAL CELL,UR FEW /LPF; WBC,URINE 0 /HPF (0-4)
[2018-05-01] MEDS: ENOXAPARIN 40 MG/0.4 ML SYRINGE. SQ SCH (17:35)
[2018-05-01 19:02] VITALS: BP 93/50
[2018-05-01] MEDS: TAMSULOSIN 0.4 MG CAP.ER.24H. PO SCH (21:15)
[2018-05-01] MEDS: SIMVASTATIN 40 MG TABLET. PO SCH (21:15)
[2018-05-01] MEDS: PHENYTOIN SODIUM EXTENDED 100 MG CAPSULE PO SCH (21:16)
[2018-05-01 23:06] VITALS: BP 113/54
[2018-05-02] VITALS (11 sets, daily range): BP systolic 111–157; BP diastolic 60–82
[2018-05-02 04:35] LABS: BASO # 0.1 x10^3/uL (0.0-0.2); BASO % 1 % (0-3); EOS # 0.1 x10^3/uL (0.0-0.7); EOS % 2 % (0-3); HEMATOCRIT 35.3 % (39.0-53.0); LYMPH # 1.8 x10^3/uL (1.0-4.8); LYMPH % 26 % (24-48); MEAN CORPUSCULAR HEMOGLOBIN 34 pg (25-35); MEAN CORPUSCULAR HGB CONC 34 g/dL (31-37); MEAN CORPUSCULAR VOLUME 100 fL (79-100); MONO % 15 % (0-9); NEUT % 57 % (31-73); PLATELET COUNT 289 x10^3/uL (140-400); RED BLOOD COUNT 3.52 x10^6/uL (4.30-5.70); RED CELL DISTRIBUTION WIDTH 14.4 % (11.5-14.5); WHITE BLOOD COUNT 7.1 x10^3/uL (4.0-11.0)
[2018-05-02 04:54] LABS: CALCIUM 8.1 mg/dL (8.5-10.1); CREATININE 1.3 mg/dL (0.7-1.3); GFR 53.3; POTASSIUM 3.7 mmol/L (3.5-5.1)
--- NOTE | 2018-05-02 07:38 | CARD ---
MR#: [id number] Date of Study: 05/01/2018 Ordering Physician: RALPH JONES, Referring Physician: PHUONG HENDERSON Tech: WILLIAM Lynne APPROVED REPORT EXAM: Two-dimensional and M-mode echocardiogram with Doppler and color Doppler. Other Information Quality : GoodHR: 79bpm INDICATION Abnormal ECG Aortic Valve Disease 2D DIMENSIONS Left Atrium(2D)3.7 (1.6-4.0cm)IVSd0.9 (0.7-1.1cm) Aortic Root(2D)3.0 (2.0-3.7cm)LVDd4.8 (3.9-5.9cm) LVOT Diameter2.5 (1.8-2.4cm)PWd1.1 (0.7-1.1cm) LVDs3.9 (2.5-4.0cm)FS (%) 19.1 % SV41.5 mlLVEF(%)39.3 (>50%) Aortic Valve AoV Peak Garrett.301.5cm/sAoV VTI57.3cm AO Peak GR.36.4mmHgLVOT Peak Garrett.64.5cm/s LVOT VTI 12.60cmAO Mean GR.24mmHg YOLY (VMAX)0.66ru1QYV (VTI)1.04cm2 AI P 1/2 [id number] Mitral Valve MV E Peak Gr.69mmHg Pulmonary Valve PV Peak Iwarmewc91.0cm/sPV Peak Grad.2mmHg Tricuspid Valve TR P. [id number]/sRAP [id number] TR Peak Gr.[id number] LEFT VENTRICLE The left ventricle is normal size. There is normal left ventricular wall thickness. Left ventricle sy stolic function is moderate to severely impaired. EF 30%. Global hypokinesis. Transmitral Doppler radha w pattern is abnormal. RIGHT VENTRICLE The right ventricle is normal size. The right ventricular systolic function is normal. ATRIA The left atrium size is normal. The right atrium size is normal. The interatrial septum is intact wit h no evidence for an atrial septal defect or patent foramen ovale as noted on 2-D or Doppler imaging. AORTIC VALVE The aortic valve is severely calcified. Doppler and Color Flow revealed mild aortic regurgitation. Ca lculated aortic valve area is 1.0 cm2 with maximum pressure gradient of 36.8 mmHg and mean pressure g radient of 24.4 mmHg. There is likely severe Aortic stenosis as gradients are probably under-estimate d due to LV dysfunction. Dimensionless index 0.22 with LVOT VTI of 12.3 cm suggestive of low gradient severe due to LV dysfunction. There is no aortic valvular vegetation. MITRAL VALVE The mitral valve is moderately thickened. There is no evidence of mitral valve prolapse. There is no mitral valve stenosis. Doppler and Color-flow revealed mild mitral regurgitation. TRICUSPID VALVE The tricuspid valve leaflets are thickened , but open well. Doppler and Color Flow revealed mild tric uspid regurgitation. There is no pulmonary hypertension. The PA pressure was estimated at 29 mmHg. Th ere is no tricuspid valve prolapse or vegetation. There is no tricuspid valve stenosis. PULMONIC VALVE Doppler and Color Flow revealed no pulmonic valvular regurgitation. There is no pulmonic valvular edgar nosis. GREAT VESSELS The aortic root is not well visualized. The IVC is normal in size and collapses <50% with inspiration . PERICARDIAL EFFUSION There is no pleural effusion. There is no evidence of significant pericardial effusion. Critical Notification Critical Value: No <Conclusion> Left ventricle systolic function is moderate to severely impaired. EF 30%. Global hypokinesis. Calculated aortic valve area is 1.0 cm2 with maximum pressure gradient of 36.8 mmHg and mean pressure gradient of 24.4 mmHg. There is likely severe Aortic stenosis as gradients are probably under-estima diamond due to LV dysfunction. Dimensionless index 0.22 with LVOT VTI of 12.3 cm suggestive of low gradie nt severe due to LV dysfunction. Signed by : Kt Salas, Electronically Approved : 05/02/2018 07:38:08
[2018-05-02] MEDS ORDERED: LIDOCAINE 1% PF 30 ML VIAL. ONE (12:25)
[2018-05-02] MEDS ORDERED: IODIXANOL 320 MG/ML 100 ML VIAL. ONE (12:25)
[2018-05-02] MEDS ORDERED: fentaNYL PF VIAL 100 MCG/2 ML VIAL ONE (12:30)
[2018-05-02] MEDS ORDERED: VERAPAMIL 5 MG/2 ML VIAL. ONE (12:30)
[2018-05-02] MEDS ORDERED: MIDAZOLAM HCL/PF 2 MG/2 ML VIAL. ONE (12:30)
[2018-05-02] MEDS ORDERED: HEPARIN for IV BOLUS 10,000 UNIT/10 ML VIAL. ONE (12:30)
[2018-05-02] MEDS ORDERED: NITROGLYCERIN 200 MCG/2 ML SYRINGE FOR CATH/VASC LAB. ONE (12:31)
[2018-05-02] MEDS ORDERED: NITROGLYCERIN 200 MCG/2 ML SYRINGE FOR CATH/VASC LAB. IART ONE (12:45)
[2018-05-02] MEDS ORDERED: HEPARIN for IV BOLUS 10,000 UNIT/10 ML VIAL. IART ONE (12:45)
[2018-05-02] MEDS ORDERED: fentaNYL PF VIAL 100 MCG/2 ML VIAL IV ONE (12:45)
[2018-05-02] MEDS ORDERED: IODIXANOL 320 MG/ML 100 ML VIAL. IART ONE (12:45)
[2018-05-02] MEDS ORDERED: LIDOCAINE 1% PF 30 ML VIAL. INJ ONE (12:45)
[2018-05-02] MEDS ORDERED: VERAPAMIL 5 MG/2 ML VIAL. IART ONE (12:45)
[2018-05-02] MEDS ORDERED: MIDAZOLAM HCL/PF 2 MG/2 ML VIAL. IV ONE (12:45)
--- NOTE | 2018-05-02 12:53 | PDOC ---
PROGRESS NOTES Chief Complaint Chief Complaint generalized weakness h/o left frontal stroke, has left hand contracted tho abnormal EKG, LBBB, ST depression, t wave changes 2/2 neuro? or old? h/o CAD with RCA 1 stent HTN HLD VASCULAR dementia, aphasia anemia hypothyroidism stable systolic CHF, EF 30% severe plan: need to talk to family to see baseline neuro, card consulted Cath today mri brain neg for new stroke, cont asa, plavix check echo done cont home meds PTOT SW for snf dvt ppx add synthroid History of Present Illness History of Present Illness ROS: no fever, chills, sob or chest pain as per nurse who talked to family the way pt talks is his baseline expressive aphasia Vitals Vitals Vital Signs Date Time Temp Pulse Resp B/P (MAP) Pulse Ox O2 Delivery O2 Flow Rate FiO2 05/02/18 10:27 98.5 79 16 148/69 (95) 95 Room Air 98.5 Physical Exam Physical Exam knows in hosp, expressive aphsia, left hand contracted, strength ok General: Alert, Oriented X3, Cooperative, No acute distress Heart: Regular rate (SR), Normal S1, Normal S2, Other (distant heart sounds, systolic murmur) Lungs: Clear Abdomen: Soft, No tenderness Extremities: No cyanosis, No edema Skin: No breakdown, No significant lesion Labs LABS Laboratory Tests Test 05/01/18 14:25 05/02/18 03:30 Urine Collection Type Unknown Urine Color Yellow Urine Clarity Clear Urine pH 7.0 Urine Specific [place] 1.015 Urine Protein Negative mg/dL (NEG-TRACE) Urine Glucose (UA) Negative mg/dL (NEG) Urine Ketones (Stick) Negative mg/dL (NEG) Urine Blood Negative (NEG) Urine Nitrite Negative (NEG) Urine Bilirubin Negative (NEG) Urine Urobilinogen Dipstick 0.2 mg/dL (0.2 mg/dL) Urine Leukocyte Esterase Negative (NEG) Urine RBC Occ /HPF (0-2) Urine WBC 0 /HPF (0-4) Urine Squamous Epithelial Cells Few /LPF Urine Bacteria 0 /HPF (0-FEW) Urine Mucus Slight /LPF White Blood Count 7.1 x10^3/uL (4.0-11.0) Red Blood Count 3.52 x10^6/uL (4.30-5.70) Hemoglobin 12.0 g/dL (13.0-17.5) Hematocrit 35.3 % (39.0-53.0) Mean Corpuscular Volume 100 fL (79-100) Mean Corpuscular Hemoglobin 34 pg (25-35) Mean Corpuscular Hemoglobin Concent 34 g/dL (31-37) Red Cell Distribution Width 14.4 % (11.5-14.5) Platelet Count 289 x10^3/uL (140-400) Neutrophils (%) (Auto) 57 % (31-73) Lymphocytes (%) (Auto) 26 % (24-48) Monocytes (%) (Auto) 15 % (0-9) Eosinophils (%) (Auto) 2 % (0-3) Basophils (%) (Auto) 1 % (0-3) Neutrophils # (Auto) 4.0 x10^3uL (1.8-7.7) Lymphocytes # (Auto) 1.8 x10^3/uL (1.0-4.8) Monocytes # (Auto) 1.0 x10^3/uL (0.0-1.1) Eosinophils # (Auto) 0.1 x10^3/uL (0.0-0.7) Basophils # (Auto) 0.1 x10^3/uL (0.0-0.2) Sodium Level 142 mmol/L (136-145) Potassium Level 3.7 mmol/L (3.5-5.1) Chloride Level 107 mmol/L (98-107) Carbon Dioxide Level 26 mmol/L (21-32) Anion Gap 9 (6-14) Blood Urea Nitrogen 29 mg/dL (8-26) Creatinine 1.3 mg/dL (0.7-1.3) Estimated GFR (Cockcroft-Gault) 53.3 Glucose Level 92 mg/dL (70-99) Calcium Level 8.1 mg/dL (8.5-10.1) Comment Review of Relevant I have reviewed the following items ursula (where applicable) has been applied. Labs Laboratory Tests Test 04/30/18 22:55 05/01/18 09:30 05/01/18 14:25 05/02/18 03:30 White Blood Count 6.2 x10^3/uL (4.0-11.0) 7.1 x10^3/uL (4.0-11.0) Red Blood Count 3.76 x10^6/uL (4.30-5.70) 3.52 x10^6/uL (4.30-5.70) Hemoglobin 12.9 g/dL (13.0-17.5) 12.0 g/dL (13.0-17.5) Hematocrit 38.0 % (39.0-53.0) 35.3 % (39.0-53.0) Mean Corpuscular Volume 101 fL (79-100) 100 fL (79-100) Mean Corpuscular Hemoglobin 34 pg (25-35) 34 pg (25-35) Mean Corpuscular Hemoglobin Concent 34 g/dL (31-37) 34 g/dL (31-37) Red Cell Distribution Width 14.6 % (11.5-14.5) 14.4 % (11.5-14.5) Platelet Count 304 x10^3/uL (140-400) 289 x10^3/uL (140-400) Neutrophils (%) (Auto) 55 % (31-73) 57 % (31-73) Lymphocytes (%) (Auto) 30 % (24-48) 26 % (24-48) Monocytes (%) (Auto) 12 % (0-9) 15 % (0-9) Eosinophils (%) (Auto) 1 % (0-3) 2 % (0-3) Basophils (%) (Auto) 1 % (0-3) 1 % (0-3) Neutrophils # (Auto) 3.4 x10^3uL (1.8-7.7) 4.0 x10^3uL (1.8-7.7) Lymphocytes # (Auto) 1.9 x10^3/uL (1.0-4.8) 1.8 x10^3/uL (1.0-4.8) Monocytes # (Auto) 0.8 x10^3/uL (0.0-1.1) 1.0 x10^3/uL (0.0-1.1) Eosinophils # (Auto) 0.1 x10^3/uL (0.0-0.7) 0.1 x10^3/uL (0.0-0.7) Basophils # (Auto) 0.1 x10^3/uL (0.0-0.2) 0.1 x10^3/uL (0.0-0.2) Sodium Level 144 mmol/L (136-145) 142 mmol/L (136-145) Potassium Level 3.7 mmol/L (3.5-5.1) 3.7 mmol/L (3.5-5.1) Chloride Level 107 mmol/L (98-107) 107 mmol/L (98-107) Carbon Dioxide Level 31 mmol/L (21-32) 26 mmol/L (21-32) Anion Gap 6 (6-14) 9 (6-14) Blood Urea Nitrogen 23 mg/dL (8-26) 29 mg/dL (8-26) Creatinine 1.1 mg/dL (0.7-1.3) 1.3 mg/dL (0.7-1.3) Estimated GFR (Cockcroft-Gault) 64.6 53.3 Glucose Level 102 mg/dL (70-99) 92 mg/dL (70-99) Calcium Level 8.4 mg/dL (8.5-10.1) 8.1 mg/dL (8.5-10.1) Magnesium Level 2.0 mg/dL (1.8-2.4) Troponin I Quantitative < 0.017 ng/mL (0.000-0.055) < 0.017 ng/mL (0.000-0.055) Creatine Kinase 70 U/L (39-308) Creatine Kinase MB (Mass) 1.1 ng/mL (0.0-3.6) Creatine Kinase MB Relative Index % (0-4) Triglycerides Level 31 mg/dL (0-150) Cholesterol Level 186 mg/dL (0-200) LDL Cholesterol, Calculated 90 mg/dL (0-100) VLDL Cholesterol, Calculated 6 mg/dL (0-40) Non-HDL Cholesterol Calculated 96 mg/dL (0-129) HDL Cholesterol 90 mg/dL (40-60) Cholesterol/HDL Ratio 2.1 Vitamin B12 Level 476 pg/mL (247-911) 25-Hydroxy Vitamin D Total 53.4 ng/mL (30-100) Thyroid Stimulating Hormone (TSH) 5.256 uIU/mL (0.358-3.74) Free Thyroxine 0.75 ng/dL (0.76-1.46) Free Triiodothyronine (T3) pg/mL 2.21 pg/mL (2.18-3.98) Urine Collection Type Unknown Urine Color Yellow Urine Clarity Clear Urine pH 7.0 Urine Specific [place] 1.015 Urine Protein Negative mg/dL (NEG-TRACE) Urine Glucose (UA) Negative mg/dL (NEG) Urine Ketones (Stick) Negative mg/dL (NEG) Urine Blood Negative (NEG) Urine Nitrite Negative (NEG) Urine Bilirubin Negative (NEG) Urine Urobilinogen Dipstick 0.2 mg/dL (0.2 mg/dL) Urine Leukocyte Esterase Negative (NEG) Urine RBC Occ /HPF (0-2) Urine WBC 0 /HPF (0-4) Urine Squamous Epithelial Cells Few /LPF Urine Bacteria 0 /HPF (0-FEW) Urine Mucus Slight /LPF Laboratory Tests Test 05/01/18 14:25 05/02/18 03:30 Urine Collection Type Unknown Urine Color Yellow Urine Clarity Clear Urine pH 7.0 Urine Specific [place] 1.015 Urine Protein Negative mg/dL (NEG-TRACE) Urine Glucose (UA) Negative mg/dL (NEG) Urine Ketones (Stick) Negative mg/dL (NEG) Urine Blood Negative (NEG) Urine Nitrite Negative (NEG) Urine Bilirubin Negative (NEG) Urine Urobilinogen Dipstick 0.2 mg/dL (0.2 mg/dL) Urine Leukocyte Esterase Negative (NEG) Urine RBC Occ /HPF (0-2) Urine WBC 0 /HPF (0-4) Urine Squamous Epithelial Cells Few /LPF Urine Bacteria 0 /HPF (0-FEW) Urine Mucus Slight /LPF White Blood Count 7.1 x10^3/uL (4.0-11.0) Red Blood Count 3.52 x10^6/uL (4.30-5.70) Hemoglobin 12.0 g/dL (13.0-17.5) Hematocrit 35.3 % (39.0-53.0) Mean Corpuscular Volume 100 fL (79-100) Mean Corpuscular Hemoglobin 34 pg (25-35) Mean Corpuscular Hemoglobin Concent 34 g/dL (31-37) Red Cell Distribution Width 14.4 % (11.5-14.5) Platelet Count 289 x10^3/uL (140-400) Neutrophils (%) (Auto) 57 % (31-73) Lymphocytes (%) (Auto) 26 % (24-48) Monocytes (%) (Auto) 15 % (0-9) Eosinophils (%) (Auto) 2 % (0-3) Basophils (%) (Auto) 1 % (0-3) Neutrophils # (Auto) 4.0 x10^3uL (1.8-7.7) Lymphocytes # (Auto) 1.8 x10^3/uL (1.0-4.8) Monocytes # (Auto) 1.0 x10^3/uL (0.0-1.1) Eosinophils # (Auto) 0.1 x10^3/uL (0.0-0.7) Basophils # (Auto) 0.1 x10^3/uL (0.0-0.2) Sodium Level 142 mmol/L (136-145) Potassium Level 3.7 mmol/L (3.5-5.1) Chloride Level 107 mmol/L (98-107) Carbon Dioxide Level 26 mmol/L (21-32) Anion Gap 9 (6-14) Blood Urea Nitrogen 29 mg/dL (8-26) Creatinine 1.3 mg/dL (0.7-1.3) Estimated GFR (Cockcroft-Gault) 53.3 Glucose Level 92 mg/dL (70-99) Calcium Level 8.1 mg/dL (8.5-10.1) Medications Current Medications Acetaminophen (Tylenol) 650 mg PRN Q4HRS PRN PO TEMP OVER 100.4F OR MILD PAIN; Start 04/30/18 at 22:30 Heparin Sodium/ Dextrose 500 ml @ 0 mls/hr CONT PRN IV SEE I/O RECORD; Start at 22:30; Stop 04/30/18 at 23:51; Status DC Heparin Sodium (Porcine) (Heparin Sodium) 1,350 unit PRN Q6HRS PRN IV FOR UFH LEVEL LESS THAN 0.2; Start 04/30/18 at 22:30; Stop 04/30/18 at 23:51; Status DC Acetaminophen (Tylenol) 650 mg PRN Q6HRS PRN PO FEVER; Start 05/01/18 at 09:00 ; Status UNV Ondansetron HCl (Zofran) 4 mg PRN Q6HRS PRN IV NAUSEA/VOMITING; Start 05/01/18 at 09:00 Morphine Sulfate (Morphine Sulfate) 2 mg PRN Q2HR PRN IV MODERATE TO SEVERE PAIN; Start 05/01/18 at 09:00 Tramadol HCl (Ultram) 50 mg PRN Q6HRS PRN PO MODERATE-SEVERE PAIN; Start at 09:00 Docusate Sodium (Colace) 100 mg PRN DAILY PRN PO CONSTIPATION; Start 05/01/18 at 09:00 Acetaminophen (Tylenol) 650 mg PRN Q6HRS PRN PO MILD PAIN / TEMP; Start at 09:00; Status UNV Aspirin (Ecotrin) 325 mg DAILYWBKFT PO Last administered on 05/01/18at 10:39; Start 05/01/18 at 10:00; Stop 05/02/18 at 07:25; Status DC Vitamin D (Vitamin D3) 1,000 unit DAILY PO Last administered on 05/01/18 10:38 ; Start 05/01/18 at 10:00 Clopidogrel Bisulfate (Plavix) 75 mg DAILYWBKFT PO Last administered on 10:39; Start 05/01/18 at 10:00 Famotidine (Pepcid) 20 mg BID PO Last administered on 05/01/18 21:15; Start at 10:00 Ferrous Sulfate (Feosol) 325 mg DAILY PO Last administered on 05/01/18 10:39; Start 05/01/18 at 10:00 Multivitamins (Thera M Plus) 1 tab DAILY PO Last administered on 05/01/18 10: 38; Start 05/01/18 at 10:00 Tamsulosin HCl (Flomax) 0.4 mg QHS PO Last administered on 05/01/18 21:15; Start 05/01/18 at 21:00 Multivitamins/ Minerals (I-Titus) 1 tab DAILY PO Last administered on 05/01/18 10:38; Start 05/01/18 at 10:00 Phenytoin Sodium (Dilantin) 400 mg QHS PO Last administered on 05/01/18 21:16 ; Start 05/01/18 at 21:00 Simvastatin (Zocor) 40 mg QHS PO Last administered on 8/23/18at 21:15; Start at 21:00 Labetalol HCl (Normodyne Iv Push) 10 mg PRN Q10MIN PRN IVP HYPERTENSION, SEE COMMENTS; Start 05/01/18 at 09:30 Enoxaparin Sodium (Lovenox 40mg Syringe) 40 mg Q24H SQ Last administered on at 17:35; Start 05/01/18 at 16:00 Aspirin (Ecotrin) 81 mg DAILYWBKFT PO ; Start 05/02/18 at 08:00 Iodixanol (Visipaque 320) 100 ml STK-MED ONCE .ROUTE ; Start 05/02/18 at 12:25; Stop 05/02/18 at 12:26; Status DC Lidocaine HCl (Xylocaine 1% Pf 30ml Vial) 30 ml STK-MED ONCE .ROUTE ; Start at 12:25; Stop 05/02/18 at 12:26; Status DC Heparin Sodium/ Sodium Chloride 500 ml @ As Directed STK-MED ONCE .ROUTE ; Start 05/02/18 at 12:25; Stop 05/02/18 at 12:26; Status DC Fentanyl Citrate (Fentanyl 2ml Vial) 100 mcg STK-MED ONCE .ROUTE ; Start at 12:30; Stop 05/02/18 at 12:31; Status DC Midazolam HCl (Versed) 2 mg STK-MED ONCE .ROUTE ; Start 05/02/18 at 12:30; Stop 05/02/18 at 12:31; Status DC Heparin Sodium (Porcine) (Heparin Sodium) 10,000 unit STK-MED ONCE .ROUTE ; Start 05/02/18 at 12:30; Stop 05/02/18 at 12:31; Status DC Verapamil HCl (Verapamil) 5 mg STK-MED ONCE .ROUTE ; Start 05/02/18 at 12:30; Stop 05/02/18 at 12:31; Status DC Nitroglycerin (Nitroglycerin) 200 mcg STK-MED ONCE .ROUTE ; Start 05/02/18 at 12 :31; Stop 05/02/18 at 12:32; Status DC Active Scripts Active Vitamin B Complex 1 Each Tablet 1 Tab PO DAILY 30 Days Flomax (Tamsulosin Hcl) 0.4 Mg Cap.er.24h 0.4 Mg PO QHS 30 Days Simvastatin 40 Mg Tablet 40 Mg PO QHS 30 Days Thera-M Tablet (Multivits,Ca,Minerals/Iron/Fa) 1 Each Tablet 1 Tab PO DAILY 30 Days Famotidine 20 Mg Tablet 20 Mg PO BID 30 Days Clopidogrel (Clopidogrel Bisulfate) 75 Mg Tablet 75 Mg PO DAILYWBKFT 30 Days Aspirin Ec (Aspirin) 325 Mg Tablet.dr 325 Mg PO DAILYWBKFT 30 Days Mapap (Acetaminophen) 325 Mg Tablet 650 Mg PO PRN Q6HRS PRN 30 Days Reported Ferrous Sulfate 325 Mg Tablet 1 Tab PO DAILY Ocuvel Capsule (FA/Vit C/E/Zinc/Copper/Lut/Roselyn) 1 Each Capsule 1 Each PO BID Vitamin D3 (Cholecalciferol (Vitamin D3)) 1,000 Unit Tablet 1 Tab PO DAILY Dilantin (Phenytoin Sodium Extended) 100 Mg Capsule 400 Mg PO HS Vitals/I & O Vital Sign - Last 24 Hours 05/01/18 05/01/18 05/01/18 05/01/18 14:42 19:02 19:30 23:06 Temp 98.3 98.9 98.3 98.3 98.9 98.3 Pulse 82 83 78 Resp 18 18 16 B/P (MAP) 125/65 (85) 93/50 (64) 113/54 (73) Pulse Ox 95 95 94 O2 Delivery Room Air Room Air Room Air Room Air 05/02/18 05/02/18 05/02/18 05/02/18 03:25 07:00 08:00 10:27 Temp 98.6 98.3 98.5 98.6 98.3 98.5 Pulse 76 81 79 Resp 16 16 16 B/P (MAP) 116/60 (78) 112/62 (79) 148/69 (95) Pulse Ox 95 93 95 O2 Delivery Room Air Room Air Room Air Room Air Intake and Output 05/01/18 05/01/18 05/02/18 15:00 23:00 07:00 Intake Total 1000 ml 200 ml Output Total 100 ml 750 ml 225 ml Balance -100 ml 250 ml -25 ml Nutrition Consultation Dietary Evaluation: Recommendations by RD: Protein supplementation Comments: REC Ensure TID Continue cardiac diet Expected Outcomes/Goals: PO intake to meet >75% est needs Malnutrition Findings: Body Fat Depletion (Non Severe: Mild Depletion Weight Status: Underweight PHUONG HENDERSON MD May 02, 2018 12:53
[2018-05-02] MEDS ORDERED: CONTRAST GIVEN. MC PRN (13:15)
--- NOTE | 2018-05-02 13:22 | PDOC1 ---
History and Physical Date of Admission Date of Admission DATE: 05/02/18 TIME: 13:20 Impression Impression Difficult swallowing, resolved. Weakness. Aphasia. Confusion. Metabolic encephalopathy. Subacute left 9th and 10th rib fractures. Old right 7th fracture. Seizure, hx. Bladder cancer. Falls. CAD, s/p stents. HTN. COPD. Degenerative spine disease. C-spine stenosis., C5-C6 myelomalacia. Old left frontal and parietal, bilateral BG and thalami infracts. Left hemiplegia. No evidence of acute CVA this time. RECOMMENDATIONS/PLAN: Continue Plavix 75 mg daily. continue ASA 81 mg daily. Continue Zocor 40 mg HS. OT/PT. Discussed with his son at bedside on 05/01/18. HISTORY OF THE PRESENT ILLNESS: 77-y-old male patient with above diseases was noted MS changes, confusion, generalized weakness with worsening of weakness in left side, and he was unable to walk as he could using a walker. He was said also had difficult swallowing. He was brought to the ER of [facility] due to concerns of new stroke, so Neurology was requested for consultation. Past Medical History Cardiovascular: CAD, HTN, Hyperlipidemia, Aortic stenosis (mod to severe). Pulmonary: COPD CENTRAL NERVOUS SYSTEM: CVA, Seizure Heme/Onc: Anemia NOS, Cancer (bladder) Psych: No pertinent hx Rheumatologic: No pertinent hx, Other (rheumatic fever) Infectious disease: No pertinent hx ENT: Other (macular degeneration; [place]) Renal/: Benign prostatic enlarg. Endocrine: No pertinent hx Dermatology: No pertinent hx Past Surgical History Appendectomy, Hernia Repair (x2), Other (cystoscopy, bladder CA resection) Family History Non contributory. ALLERGY: Reviewed. MEDICATIONS: Refer to [facility] SOCIAL HISTORY: Lives at home. Denies current smoking, drinking, and illicit drug use. He smoked in the past but quit about 20 years ago. REVIEW OF SYSTEMS: Constitutional: Mild weight loss. Head: No recent traumatic brain or head injury. Skin: No edema, or rash. Ear: No infection. Eyes: No vision loss or color blindness. Nose: No bleeding or purulent discharges. Hearing: Hearing decrease. Neck: No injury. Cardiac: CAD, s/p stents, HTN, HLD. Pulmonary: COPD. GI: No GI ulcer, GI bleeding. Urinary/genital: UTI. Endocrinologic: No cousin face, craniofacial dysmorphism, polydactyly. Skeletomuscular: left side hemiplegia. Generalized weakness. Neurological: see HP. Psychiatric: Denies drug use/abuse. Otherwise, not [id number] review of systems. PHYSICAL EXAMINATION: General appearance is in subacute distress. HEENT: Normocephalic and nontraumatic. Eyes, nose, ears, and throat are unremarkable. Neck is supple. No lymphadenopathy. No crepitus. Cardiovascular: S1, S2, regular rate and rhythm. Pulmonary: Clear to auscultation bilaterally. Abdomen: Bowel sounds are positive. Extremities: No rash, lesions, or edema. No restriction of range of motion NEUROLOGICAL EXAMINATION: Awake. Not oriented to time, place but knew person. PERRL. EOMI. CN: no acute focal findings. Muscle tone: within normal. Muscle strength: Left side hemiplegia, 4. 5 right side. DTR: 2- Plantar reflex: Neutral response bilaterally Gait: not examined in bed. Sensory exam: no abnormal findings. Cerebellar signs elicited. F-T-N test not accurate. Current Medications Current Medications Current Medications Acetaminophen (Tylenol) 650 mg PRN Q4HRS PRN PO TEMP OVER 100.4F OR MILD PAIN; Start 04/30/18 at 22:30 Heparin Sodium/ Dextrose 500 ml @ 0 mls/hr CONT PRN IV SEE I/O RECORD; Start at 22:30; Stop 04/30/18 at 23:51; Status DC Heparin Sodium (Porcine) (Heparin Sodium) 1,350 unit PRN Q6HRS PRN IV FOR UFH LEVEL LESS THAN 0.2; Start 04/30/18 at 22:30; Stop 04/30/18 at 23:51; Status DC Acetaminophen (Tylenol) 650 mg PRN Q6HRS PRN PO FEVER; Start 05/01/18 at 09:00 ; Status UNV Ondansetron HCl (Zofran) 4 mg PRN Q6HRS PRN IV NAUSEA/VOMITING; Start 05/01/18 at 09:00 Morphine Sulfate (Morphine Sulfate) 2 mg PRN Q2HR PRN IV MODERATE TO SEVERE PAIN; Start 05/01/18 at 09:00 Tramadol HCl (Ultram) 50 mg PRN Q6HRS PRN PO MODERATE-SEVERE PAIN; Start at 09:00 Docusate Sodium (Colace) 100 mg PRN DAILY PRN PO CONSTIPATION; Start 05/01/18 at 09:00 Acetaminophen (Tylenol) 650 mg PRN Q6HRS PRN PO MILD PAIN / TEMP; Start at 09:00; Status UNV Aspirin (Ecotrin) 325 mg DAILYWBKFT PO Last administered on 05/01/18 10:39; Start 05/01/18 at 10:00; Stop 05/02/18 at 07:25; Status DC Vitamin D (Vitamin D3) 1,000 unit DAILY PO Last administered on 05/01/18 10:38 ; Start 05/01/18 at 10:00 Clopidogrel Bisulfate (Plavix) 75 mg DAILYWBKFT PO Last administered on 10:39; Start 05/01/18 at 10:00 Famotidine (Pepcid) 20 mg BID PO Last administered on 05/01/18 21:15; Start at 10:00 Ferrous Sulfate (Feosol) 325 mg DAILY PO Last administered on 05/01/18 10:39; Start 05/01/18 at 10:00 Multivitamins (Thera M Plus) 1 tab DAILY PO Last administered on 05/01/18 10: 38; Start 05/01/18 at 10:00 Tamsulosin HCl (Flomax) 0.4 mg QHS PO Last administered on 05/01/18at 21:15; Start 05/01/18 at 21:00 Multivitamins/ Minerals (I-Titus) 1 tab DAILY PO Last administered on 05/01/18at 10:38; Start 05/01/18 at 10:00 Phenytoin Sodium (Dilantin) 400 mg QHS PO Last administered on 05/01/18 21:16 ; Start 05/01/18 at 21:00 Simvastatin (Zocor) 40 mg QHS PO Last administered on 05/01/18 21:15; Start at 21:00 Labetalol HCl (Normodyne Iv Push) 10 mg PRN Q10MIN PRN IVP HYPERTENSION, SEE COMMENTS; Start 05/01/18 at 09:30 Enoxaparin Sodium (Lovenox 40mg Syringe) 40 mg Q24H SQ Last administered on at 17:35; Start 05/01/18 at 16:00 Aspirin (Ecotrin) 81 mg DAILYWBKFT PO ; Start 05/02/18 at 08:00 Iodixanol (Visipaque 320) 100 ml STK-MED ONCE .ROUTE ; Start 05/02/18 at 12:25; Stop 05/02/18 at 12:26; Status DC Lidocaine HCl (Xylocaine 1% Pf 30ml Vial) 30 ml STK-MED ONCE .ROUTE ; Start at 12:25; Stop 05/02/18 at 12:26; Status DC Heparin Sodium/ Sodium Chloride 500 ml @ As Directed STK-MED ONCE .ROUTE ; Start 05/02/18 at 12:25; Stop 05/02/18 at 12:26; Status DC Fentanyl Citrate (Fentanyl 2ml Vial) 100 mcg STK-MED ONCE .ROUTE ; Start at 12:30; Stop 05/02/18 at 12:31; Status DC Midazolam HCl (Versed) 2 mg STK-MED ONCE .ROUTE ; Start 05/02/18 at 12:30; Stop 05/02/18 at 12:31; Status DC Heparin Sodium (Porcine) (Heparin Sodium) 10,000 unit STK-MED ONCE .ROUTE ; Start 05/02/18 at 12:30; Stop 05/02/18 at 12:31; Status DC Verapamil HCl (Verapamil) 5 mg STK-MED ONCE .ROUTE ; Start 05/02/18 at 12:30; Stop 05/02/18 at 12:31; Status DC Nitroglycerin (Nitroglycerin) 200 mcg STK-MED ONCE .ROUTE ; Start 05/02/18 at 12 :31; Stop 05/02/18 at 12:32; Status DC Levothyroxine Sodium (Synthroid) 75 mcg DAILY07 PO ; Start 05/03/18 at 07:00 Nitroglycerin (Nitroglycerin) 200 mcg 1X ONCE IART ; Start 05/02/18 at 12:45; Stop 05/02/18 at 13:06; Status DC Verapamil HCl (Verapamil) 2.5 mg 1X ONCE IART ; Start 05/02/18 at 12:45; Stop 05/02/18 at 13:06; Status DC Heparin Sodium (Porcine) (Heparin Sodium) 2,500 unit 1X ONCE IART ; Start 05/02 at 12:45; Stop 05/02/18 at 13:06; Status DC Heparin Sodium/ Sodium Chloride (HEPARIN for ARTERIAL LINE FLUSH) 1,000 unit 1X ONCE IART ; Start 05/02/18 at 12:45; Stop 05/02/18 at 13:06; Status DC Midazolam HCl (Versed) 2 mg 1X ONCE IV ; Start 05/02/18 at 12:45; Stop at 13:06; Status DC Fentanyl Citrate (Fentanyl 2ml Vial) 100 mcg 1X ONCE IV ; Start 05/02/18 at 12: 45; Stop 05/02/18 at 13:06; Status DC Iodixanol (Visipaque 320) 100 ml 1X ONCE IART ; Start 05/02/18 at 12:45; Stop 05/02/18 at 13:06; Status DC Lidocaine HCl (Xylocaine 1% Pf 30ml Vial) 30 ml 1X ONCE INJ ; Start 05/02/18 at 12:45; Stop 05/02/18 at 13:06; Status DC Info (CONTRAST GIVEN -- Rx MONITORING) 1 each PRN DAILY PRN MC SEE COMMENTS; Start 05/02/18 at 13:15; Stop 05/04/18 at 13:14 Dobutamine HCl/ Dextrose 250 ml @ 4.05 mls/hr CONT PRN IV SEE I/O RECORD; Start 05/02/18 at 13:30 Active Scripts Active Vitamin B Complex 1 Each Tablet 1 Tab PO DAILY 30 Days Flomax (Tamsulosin Hcl) 0.4 Mg Cap.er.24h 0.4 Mg PO QHS 30 Days Simvastatin 40 Mg Tablet 40 Mg PO QHS 30 Days Thera-M Tablet (Multivits,Ca,Minerals/Iron/Fa) 1 Each Tablet 1 Tab PO DAILY 30 Days Famotidine 20 Mg Tablet 20 Mg PO BID 30 Days Clopidogrel (Clopidogrel Bisulfate) 75 Mg Tablet 75 Mg PO DAILYWBKFT 30 Days Aspirin Ec (Aspirin) 325 Mg Tablet.dr 325 Mg PO DAILYWBKFT 30 Days Mapap (Acetaminophen) 325 Mg Tablet 650 Mg PO PRN Q6HRS PRN 30 Days Reported Ferrous Sulfate 325 Mg Tablet 1 Tab PO DAILY Ocuvel Capsule (FA/Vit C/E/Zinc/Copper/Lut/Roselyn) 1 Each Capsule 1 Each PO BID Vitamin D3 (Cholecalciferol (Vitamin D3)) 1,000 Unit Tablet 1 Tab PO DAILY Dilantin (Phenytoin Sodium Extended) 100 Mg Capsule 400 Mg PO HS Allergies Allergies: Coded Allergies: No Known Drug Allergies (Unverified , 02/12/16) Vitals VITALS Vital Signs Date Time Temp Pulse Resp B/P (MAP) Pulse Ox O2 Delivery O2 Flow Rate FiO2 05/02/18 10:27 98.5 79 16 148/69 (95) 95 Room Air 98.5 Labs Labs Laboratory Tests Test 04/30/18 22:55 05/01/18 09:30 05/01/18 14:25 05/02/18 03:30 White Blood Count 6.2 x10^3/uL (4.0-11.0) 7.1 x10^3/uL (4.0-11.0) Red Blood Count 3.76 x10^6/uL (4.30-5.70) 3.52 x10^6/uL (4.30-5.70) Hemoglobin 12.9 g/dL (13.0-17.5) 12.0 g/dL (13.0-17.5) Hematocrit 38.0 % (39.0-53.0) 35.3 % (39.0-53.0) Mean Corpuscular Volume 101 fL (79-100) 100 fL (79-100) Mean Corpuscular Hemoglobin 34 pg (25-35) 34 pg (25-35) Mean Corpuscular Hemoglobin Concent 34 g/dL (31-37) 34 g/dL (31-37) Red Cell Distribution Width 14.6 % (11.5-14.5) 14.4 % (11.5-14.5) Platelet Count 304 x10^3/uL (140-400) 289 x10^3/uL (140-400) Neutrophils (%) (Auto) 55 % (31-73) 57 % (31-73) Lymphocytes (%) (Auto) 30 % (24-48) 26 % (24-48) Monocytes (%) (Auto) 12 % (0-9) 15 % (0-9) Eosinophils (%) (Auto) 1 % (0-3) 2 % (0-3) Basophils (%) (Auto) 1 % (0-3) 1 % (0-3) Neutrophils # (Auto) 3.4 x10^3uL (1.8-7.7) 4.0 x10^3uL (1.8-7.7) Lymphocytes # (Auto) 1.9 x10^3/uL (1.0-4.8) 1.8 x10^3/uL (1.0-4.8) Monocytes # (Auto) 0.8 x10^3/uL (0.0-1.1) 1.0 x10^3/uL (0.0-1.1) Eosinophils # (Auto) 0.1 x10^3/uL (0.0-0.7) 0.1 x10^3/uL (0.0-0.7) Basophils # (Auto) 0.1 x10^3/uL (0.0-0.2) 0.1 x10^3/uL (0.0-0.2) Sodium Level 144 mmol/L (136-145) 142 mmol/L (136-145) Potassium Level 3.7 mmol/L (3.5-5.1) 3.7 mmol/L (3.5-5.1) Chloride Level 107 mmol/L (98-107) 107 mmol/L (98-107) Carbon Dioxide Level 31 mmol/L (21-32) 26 mmol/L (21-32) Anion Gap 6 (6-14) 9 (6-14) Blood Urea Nitrogen 23 mg/dL (8-26) 29 mg/dL (8-26) Creatinine 1.1 mg/dL (0.7-1.3) 1.3 mg/dL (0.7-1.3) Estimated GFR (Cockcroft-Gault) 64.6 53.3 Glucose Level 102 mg/dL (70-99) 92 mg/dL (70-99) Calcium Level 8.4 mg/dL (8.5-10.1) 8.1 mg/dL (8.5-10.1) Magnesium Level 2.0 mg/dL (1.8-2.4) Troponin I Quantitative < 0.017 ng/mL (0.000-0.055) < 0.017 ng/mL (0.000-0.055) Creatine Kinase 70 U/L (39-308) Creatine Kinase MB (Mass) 1.1 ng/mL (0.0-3.6) Creatine Kinase MB Relative Index % (0-4) Triglycerides Level 31 mg/dL (0-150) Cholesterol Level 186 mg/dL (0-200) LDL Cholesterol, Calculated 90 mg/dL (0-100) VLDL Cholesterol, Calculated 6 mg/dL (0-40) Non-HDL Cholesterol Calculated 96 mg/dL (0-129) HDL Cholesterol 90 mg/dL (40-60) Cholesterol/HDL Ratio 2.1 Vitamin B12 Level 476 pg/mL (247-911) 25-Hydroxy Vitamin D Total 53.4 ng/mL (30-100) Thyroid Stimulating Hormone (TSH) 5.256 uIU/mL (0.358-3.74) Free Thyroxine 0.75 ng/dL (0.76-1.46) Free Triiodothyronine (T3) pg/mL 2.21 pg/mL (2.18-3.98) Urine Collection Type Unknown Urine Color Yellow Urine Clarity Clear Urine pH 7.0 Urine Specific [place] 1.015 Urine Protein Negative mg/dL (NEG-TRACE) Urine Glucose (UA) Negative mg/dL (NEG) Urine Ketones (Stick) Negative mg/dL (NEG) Urine Blood Negative (NEG) Urine Nitrite Negative (NEG) Urine Bilirubin Negative (NEG) Urine Urobilinogen Dipstick 0.2 mg/dL (0.2 mg/dL) Urine Leukocyte Esterase Negative (NEG) Urine RBC Occ /HPF (0-2) Urine WBC 0 /HPF (0-4) Urine Squamous Epithelial Cells Few /LPF Urine Bacteria 0 /HPF (0-FEW) Urine Mucus Slight /LPF Laboratory Tests Test 05/01/18 14:25 05/02/18 03:30 Urine Collection Type Unknown Urine Color Yellow Urine Clarity Clear Urine pH 7.0 Urine Specific [place] 1.015 Urine Protein Negative mg/dL (NEG-TRACE) Urine Glucose (UA) Negative mg/dL (NEG) Urine Ketones (Stick) Negative mg/dL (NEG) Urine Blood Negative (NEG) Urine Nitrite Negative (NEG) Urine Bilirubin Negative (NEG) Urine Urobilinogen Dipstick 0.2 mg/dL (0.2 mg/dL) Urine Leukocyte Esterase Negative (NEG) Urine RBC Occ /HPF (0-2) Urine WBC 0 /HPF (0-4) Urine Squamous Epithelial Cells Few /LPF Urine Bacteria 0 /HPF (0-FEW) Urine Mucus Slight /LPF White Blood Count 7.1 x10^3/uL (4.0-11.0) Red Blood Count 3.52 x10^6/uL (4.30-5.70) Hemoglobin 12.0 g/dL (13.0-17.5) Hematocrit 35.3 % (39.0-53.0) Mean Corpuscular Volume 100 fL (79-100) Mean Corpuscular Hemoglobin 34 pg (25-35) Mean Corpuscular Hemoglobin Concent 34 g/dL (31-37) Red Cell Distribution Width 14.4 % (11.5-14.5) Platelet Count 289 x10^3/uL (140-400) Neutrophils (%) (Auto) 57 % (31-73) Lymphocytes (%) (Auto) 26 % (24-48) Monocytes (%) (Auto) 15 % (0-9) Eosinophils (%) (Auto) 2 % (0-3) Basophils (%) (Auto) 1 % (0-3) Neutrophils # (Auto) 4.0 x10^3uL (1.8-7.7) Lymphocytes # (Auto) 1.8 x10^3/uL (1.0-4.8) Monocytes # (Auto) 1.0 x10^3/uL (0.0-1.1) Eosinophils # (Auto) 0.1 x10^3/uL (0.0-0.7) Basophils # (Auto) 0.1 x10^3/uL (0.0-0.2) Sodium Level 142 mmol/L (136-145) Potassium Level 3.7 mmol/L (3.5-5.1) Chloride Level 107 mmol/L (98-107) Carbon Dioxide Level 26 mmol/L (21-32) Anion Gap 9 (6-14) Blood Urea Nitrogen 29 mg/dL (8-26) Creatinine 1.3 mg/dL (0.7-1.3) Estimated GFR (Cockcroft-Gault) 53.3 Glucose Level 92 mg/dL (70-99) Calcium Level 8.1 mg/dL (8.5-10.1) VTE Prophylaxis Ordered VTE Prophylaxis Devices: Yes VTE Pharmacological Prophylaxi: Yes FARZAD PATEL MD May 02, 2018 13:22
--- NOTE | 2018-05-02 13:59 | PDOC ---
MODERATE SEDATION ASSESSMENT RISKS/ALTERNATIVES Risks/Alternatives Risks and alternatives of this type of sedation and procedure discussed with: RISK/ALTERNATIVES: Patient H & P ON CHART H & P H & P on chart and reviewed for co-morbid conditions and appropriate labs. H&P ON CHART: Yes STATUS PREG STATUS ASSESSED: N/A MEDS/ALLERGIES REVIEWED Meds/Allergies Reviewed Medications and Allergies including time and route of recently administered narcotics and sedatives. MEDS/ALLERGIES REVIEWED: Yes ASA RATING ASA RATING: II AIRWAY ASSESSMENT Airway Assessment Airway patency, oral function limitations, presence of caps, crowns, dentures, partials, and ability to extend neck assessed. AIRWAY ASSESSMENT: Yes MALLAMPATI SCORE MALLAMPATI SCORE: II PRE-SEDATION ASSESSMENT PRE-SEDATION ASSESSMENT: Yes URIEL GUZMAN MD May 02, 2018 13:59
[2018-05-02] MEDS ORDERED: NITROGLYCERIN SUBLINGUAL 0.4 MG BOTTLE OF 25. SL PRN (14:00)
--- NOTE | 2018-05-02 14:15 | CARD ---
MR#: [id number] Date of Study: 05/02/2018 Ordering Physician: URIEL FLOWERS, Referring Physician: PHUONG HENDERSON Tech: RT Baylee (R) APPROVED REPORT Technologist: RT Baylee (R) Nurse: Guera Alfaro RN Procedure(s) performed: Left heart catheterization, selective coronary angiography and left ventricul ography via right transradial approach Moderate sedation: 25 minutes INDICATION The indication(s) include : Cardiomyopathy and aortic valve stenosis. PROCEDURE NARRATIVE After explaining the risks, benefits and alternative options, informed consent was obtained from kendrick ent. Patient was brought to the cardiac Tuber Helper and right wrist was prepped and draped in the usual fashion after confirming a positive modified Gabe's test. Arterial access was obtained in the righ t radial artery and a 6 Serbian sheath was inserted. 6 Serbian Bo catheter was used to perform ladarius ective angiography of the left and right coronary arteries. 6 Serbian dual lumen pigtail catheter was used to perform left ventriculography and simultaneous gradient across the aortic valve. Patient to lerated the procedure well. Hemostasis was achieved using TR band. There were no immediate complica tions. The following findings were noted. FINDINGS 1. Hemodynamics: Left ventricular end-diastolic pressure of 15 mmHg. mean gradient across the aortic valve 28 mmHg consistent with moderate aortic stenosis. However, this could have been underestimated due to the low flow state. 2. Left ventriculography: Moderate left ventricle systolic dysfunction with ejection fraction estima diamond at 30-35%. No significant mitral regurgitation seen. 3. Coronary angiography: a. The left main coronary artery arose from the left sinus of Valsalva, gave rise to the left anteri or descending and left circumflex arteries showed 70% stenosis involving the mid to distal segment wi th an ulcerated plaque. b. The left anterior descending artery showed minimal luminal irregularities without any significant stenosis. c. The left circumflex artery showed 50% stenosis in the obtuse marginal branch. d. The right coronary artery was a large and dominant vessel arising from the right sinus of Valsalv a that showed 70% stenosis in the proximal to midsegment and patent previously placed stent in the di stal segment. Conclusion 1. 70% stenosis involving the mid to distal left main coronary artery and 70% stenosis involving the right coronary artery. The previously placed stent in the distal segment of the right coronary arter y was patent. 2. Moderate left ventricle systolic dysfunction with ejection fraction estimated at 30-35%. 3. Moderate aortic stenosis with mean gradient 28 mmHg. Due to the low output state this could have been underestimated. Recommendations CT surgery consultation for possible CABG/SAVR. If he is deemed a poor surgical candidate, consider high risk PCI/stents to LMCA and RCA followed by referral for TAVR. Signed by : Uriel Flowers, Electronically Approved : 05/02/2018 14:14:53
[2018-05-02] MEDS ORDERED: IV 1/2 NORMAL SALINE 1,000 ML IV SCH (14:30)
[2018-05-02] MEDS: MULTIVITAMIN I-VITE TABLET. PO SCH (14:55)
[2018-05-02] MEDS: ASPIRIN ENTERIC COATED 81 MG TABLET.DR. PO SCH (14:55)
[2018-05-02] MEDS: CHOLECALCIFEROL (VITAMIN D3) 1,000 UNIT TABLET PO SCH (14:56)
[2018-05-02] MEDS: FERROUS SULFATE 325 MG TABLET. PO SCH (14:56)
[2018-05-02] MEDS: CLOPIDOGREL BISULFATE 75 MG TABLET PO SCH (14:56)
[2018-05-02] MEDS: FAMOTIDINE 20 MG TABLET. PO SCH ×2 (14:56→20:19)
[2018-05-02] MEDS: MULTIVITAMIN with MINERAL TABLET. PO SCH (14:56)
[2018-05-02] MEDS: ENOXAPARIN 40 MG/0.4 ML SYRINGE. SQ SCH (15:02)
[2018-05-02] MEDS: TAMSULOSIN 0.4 MG CAP.ER.24H. PO SCH (20:19)
[2018-05-02] MEDS: PHENYTOIN SODIUM EXTENDED 100 MG CAPSULE PO SCH (20:20)
[2018-05-02] MEDS: SIMVASTATIN 40 MG TABLET. PO SCH (20:20)
[2018-05-03 03:00] VITALS: BP 137/73
[2018-05-03 05:13] LABS: BASO # 0.1 x10^3/uL (0.0-0.2); BASO % 1 % (0-3); EOS # 0.2 x10^3/uL (0.0-0.7); EOS % 3 % (0-3); HEMOGLOBIN 11.5 g/dL (13.0-17.5); LYMPH # 1.5 x10^3/uL (1.0-4.8); LYMPH % 22 % (24-48); MEAN CORPUSCULAR HEMOGLOBIN 35 pg (25-35); MEAN CORPUSCULAR HGB CONC 35 g/dL (31-37); MEAN CORPUSCULAR VOLUME 100 fL (79-100); MONO % 15 % (0-9); NEUT # 3.8 x10^3uL (1.8-7.7); NEUT % 59 % (31-73); PLATELET COUNT 272 x10^3/uL (140-400); RED BLOOD COUNT 3.29 x10^6/uL (4.30-5.70); RED CELL DISTRIBUTION WIDTH 14.3 % (11.5-14.5); WHITE BLOOD COUNT 6.5 x10^3/uL (4.0-11.0)
[2018-05-03 05:31] LABS: CALCIUM 7.9 mg/dL (8.5-10.1); GFR 72.1; POTASSIUM 3.5 mmol/L (3.5-5.1)
[2018-05-03 07:00] VITALS: BP 144/66
[2018-05-03] MEDS ORDERED: LEVOTHYROXINE 75 MCG TABLET PO SCH (07:00)
[2018-05-03] MEDS: FERROUS SULFATE 325 MG TABLET. PO SCH (09:48)
[2018-05-03] MEDS: MULTIVITAMIN with MINERAL TABLET. PO SCH (09:48)
[2018-05-03] MEDS: ASPIRIN ENTERIC COATED 81 MG TABLET.DR. PO SCH (09:48)
[2018-05-03] MEDS: CLOPIDOGREL BISULFATE 75 MG TABLET PO SCH (09:48)
[2018-05-03] MEDS: CHOLECALCIFEROL (VITAMIN D3) 1,000 UNIT TABLET PO SCH (09:49)
[2018-05-03] MEDS: MULTIVITAMIN I-VITE TABLET. PO SCH (09:49)
[2018-05-03] MEDS: FAMOTIDINE 20 MG TABLET. PO SCH (09:51)
--- NOTE | 2018-05-03 10:56 | PDOC ---
Provider Note Provider Note Case discussed with Dr. Leach, patient's primary misdraw hand yesterday and today. Dr. Leach spoke to patient's who wants to have a second opinion through Dr. jay at [facility]. Given his ulcerated plaque in the left main, do not feel that discharge to home is appropriate. Although his symptoms at presentation were not related to cardiac issues, his syncope and mental status changes are of unclear nature. Arrhythmia is a possibility given his severe LV dysfunction/. It is unclear if aortic valve tx would improve his LV dysfunction but certainly , his LM needs to be addressed. A PCI of the LM with aortic valvuloplasty may be appropriate. We can do this here but patient and Dr. Leach would like the patient transferred over there. Spoke to Dr. Jay at [facility] and updated. Plan for transfer later today. Pls call with questions. FRANCE BECK MD May 03, 2018 10:56
[2018-05-03 11:00] VITALS: BP 179/81
--- NOTE | 2018-05-03 13:40 | PDOC3 ---
Discharge Summary [facility] Date of Admission: Apr 30, 2018 Discharge Date: May 03, 2018 Admitting Diagnosis generalized weakness h/o left frontal stroke, has left hand contracted tho abnormal EKG, LBBB, ST depression, t wave changes , LAD, RCA 70% stenosis h/o CAD with RCA 1 stent HTN HLD VASCULAR dementia, aphasia anemia hypothyroidism stable systolic CHF, EF 30% moderate CONSULTS card Brief Hospital Course 77yo M, with h/o stroke with left frontal stroke last year, was sent from [facility] for weakness and EKG change. PT IS pleasant demented, not sure this is his baseline post his old stroke or new symptoms. He has expressive aphasia, still follows commands ok. But cannot tell me why he is in hosp, which hosp. Denies chest pain. as per [facility], and ERP, pt was sent for weakness, not sure which side, or worsening aphagia or dysarthria. EKG in [facility] showed some st depression, LBBB, as per card it is old, i dont have records to compare. Pt denies chest pain, MRI no new stroke. as per nurse who talked to family, pt' s mental status is his baseline. Pt did cath given EF dropped to 30% from 40% , showed 70% stenosis at LAD AND RCA , card recommend CT consult for CABG. card talked to pt's own card dr. Cotter who and want 2nd opinion from dr. Garcia at [facility], transfer [facility] today. dc time 35min. Physical Exam knows in hosp, expressive aphsia, left hand contracted, strength bl ok General: Alert, Oriented X3, Cooperative, No acute distress Heart: Regular rate (SR), Normal S1, Normal S2, Other (distant heart sounds, systolic murmur) Lungs: Clear Abdomen: Soft, No tenderness Extremities: No cyanosis, No edema Skin: No breakdown, No significant lesion Disposition transfer to [facility] CONDITION AT DISCHARGE: Improved Scheduled Aspirin (Aspirin Ec), 325 MG PO DAILYWBKFT Cholecalciferol (Vitamin D3) (Vitamin D3), 1 TAB PO DAILY, (Reported) Clopidogrel Bisulfate (Clopidogrel), 75 MG PO DAILYWBKFT FA/Vit C/E/Zinc/Copper/Lut/Roselyn (Ocuvel Capsule), 1 EACH PO BID, (Reported) Famotidine (Famotidine), 20 MG PO BID Ferrous Sulfate (Ferrous Sulfate), 1 TAB PO DAILY, (Reported) Multivits,Ca,Minerals/Iron/Fa (Thera-M Tablet), 1 TAB PO DAILY Phenytoin Sodium Extended (Dilantin), 400 MG PO HS, (Reported) Simvastatin (Simvastatin), 40 MG PO QHS Tamsulosin Hcl (Flomax), 0.4 MG PO QHS Vitamin B Complex (Vitamin B Complex), 1 TAB PO DAILY Scheduled PRN Acetaminophen (Mapap), 650 MG PO PRN Q6HRS PRN for MILD PAIN / TEMP Discontinued Medications Ascorbic Acid (Vitamin C), 250 MG PO DAILY Discontinued Reason: per pt Ezetimibe (Zetia), 10 MG PO HS Discontinued Reason: per pt Phenytoin Sodium Extended (Dilantin), 300 MG PO HS Discontinued Reason: per pt PHUONG HENDERSON MD May 03, 2018 13:40
== END 2018-05-03 14:10 | disposition short-term general hospital (02) | DRG 286 ==
LOC: 2 NORTH 21:54 → 2 SOUTH 05-02 11:15
PROVIDERS: ADMIT Internal Medicine; ATTEND Internal Medicine
PROC: 4A023N7 Measurement of Cardiac Sampling and Pressure, Left Heart, Percutaneous Approach (ICD-10-PCS; principal; 2018-05-02)
PROC: B2111ZZ Fluoroscopy of Multiple Coronary Arteries using Low Osmolar Contrast (ICD-10-PCS; 2018-05-02)
PROC: B2151ZZ Fluoroscopy of Left Heart using Low Osmolar Contrast (ICD-10-PCS; 2018-05-02)
DX: I35.0 Nonrheumatic aortic (valve) stenosis (principal); G93.41 Metabolic encephalopathy; I50.20 Unspecified systolic (congestive) heart failure; R47.01 Aphasia; G81.94 Hemiplegia, unspecified affecting left nondominant side; G95.89 Other specified diseases of spinal cord; D53.9 Nutritional anemia, unspecified; E03.9 Hypothyroidism, unspecified; E78.5 Hyperlipidemia, unspecified; F01.50 Vascular dementia, unspecified severity, without behavioral disturbance, psychotic disturbance, mood disturbance, and anxiety; I11.0 Hypertensive heart disease with heart failure; I25.10 Atherosclerotic heart disease of native coronary artery without angina pectoris; I44.7 Left bundle-branch block, unspecified; J44.9 Chronic obstructive pulmonary disease, unspecified; X58.XXXD Exposure to other specified factors, subsequent encounter; M19.90 Unspecified osteoarthritis, unspecified site; R47.1 Dysarthria and anarthria; R27.0 Ataxia, unspecified; M48.02 Spinal stenosis, cervical region; R13.10 Dysphagia, unspecified; Z79.02 Long term (current) use of antithrombotics/antiplatelets; Z79.82 Long term (current) use of aspirin; Z85.51 Personal history of malignant neoplasm of bladder; Z86.73 Personal history of transient ischemic attack (TIA), and cerebral infarction without residual deficits; Z87.891 Personal history of nicotine dependence; Z95.5 Presence of coronary angioplasty implant and graft; Z90.49 Acquired absence of other specified parts of digestive tract; Z79.899 Other long term (current) drug therapy; S22.42XD Multiple fractures of ribs, left side, subsequent encounter for fracture with routine healing
CPT/HCPCS: 36415; 70551; 71111; 80048; 80061; 81001; 82306; 82553; 82607; 83735; 84439; 84443; 84481; 84484; 85025; 93005; 93306; 93458; 99152; 99153; C1769; C1887; C1892; J1644; J1650; J2250; J3010; J3490; 97116